=== PATIENT | male | born 1960 | race Caucasian/White ===

== ENCOUNTER 2017-07-01 10:02 | Emergency (ER) | payer BC ==
[~2017-07-01] VITALS: Ht 172.7 cm; Wt 66.5 kg
[2017-07-01 10:04] VITALS: Ht 172.7 cm; Wt 66.5 kg
[2017-07-01] MEDS ORDERED: IBUPROFEN 600 MG TAB PO ONE (11:00)
[2017-07-01] MEDS ORDERED: DEXAMETHASONE 10 MG/ML 1 ML INJ IM ONE (11:00)
--- NOTE | 2017-07-01 11:07 | ERD ---
ER Documentation Chief Complaint Date/Time DATE: 07/01/17 TIME: 10:53 Chief Complaint lower back pain x 2 weeks HPI 57-year-old otherwise healthy male presents the emergency department for complaints of gradually worsening low back pain 2 weeks. Patient states while at work is required to lift heavy material but does not note any discrete incident where he sustained an injury. He reports currently a 10 out of 10 constant sharp nonradiating lower right back pain, which is worse when going from sitting to standing and improved with walking. Patient states he is attempted to treat his pain with icy hot at home with no relief. Patient denies any radiation of pain, numbness, tingling or weakness. He denies any bowel or bladder incontinence. He denies any saddle anesthesia. He denies any fevers, chills, chest pain, shortness of breath, abdominal pain, dizziness, dysuria, hematuriA. ROS All systems reviewed and are negative except as per history of present illness. Allergies Allergies: Coded Allergies: No Known Allergy (Unverified , 07/01/17) Physical Exam Vitals Vital Signs Date Time Temp Pulse Resp B/P Pulse Ox O2 Delivery O2 Flow Rate FiO2 07/01/17 10:04 98.4 85 20 161/74 100 Physical Exam Const: Well-developed, well-nourished, no acute distress Head: Atraumatic Neck: Full range of motion..~ No meningismus. Resp: Clear to auscultation bilaterally Cardio: Regular rate and rhythm, no murmurs Abd: Soft, non tender, non distended. Normal bowel sounds. No pulsatile masses. Skin: No petechiae or rashes Back: No surface trauma, swelling, erythema, or ecchymosis. Patient with full range of motion at hip, knees, ankles. Patient with good strength against resistance at hip and knees. Patient able to bear full weight and ambulate without difficulty. No midline spinal tenderness, no flank tenderness to palpation. Mild tenderness along the right paraspinous region. Patellar deep tendon reflexes brisk and equal bilaterally. Distal sensation intact to light touch bilaterally. Pedal pulses equal bilateral. No swelling of the lower legs. Ext: No cyanosis, or edema Neur: Awake and alert Psych: Normal Mood and Affect Procedures/MDM This is an otherwise healthy 57-year-old male who presents emergency department for complaints of gradually worsening lower back pain 2 week. Patient does not note any or injury but states that he is required to lift heavy objects at work. Vital signs reviewed. Patient afebrile, non-tachycardic, not hypoxic upon arrival. Patient's blood pressure was elevated (>120/80) but appears stable without evidence of hypertension emergency or urgency. The patient was counseled about the risks of hypertension and urged to pursue outpatient monitoring and therapy within a week with their primary care physician. Physical exam without evidence of swelling, bruising, midline tenderness, decreased range of motion, weakness, or neurovascular deficit. Patient without complaints of saddle anesthesia or bowel and bladder incontinence. Patient well -appearing upon arrival, able to bear full weight and ambulate. The patient's low back pain is unlikely related to serious etiology. The patient exhibits no clinical signs or symptoms and has no history or risk factors to suggest cauda equina, cord compression, epidural abscess, epidural hematoma, acute aortic aneurysm or dissection. History and physical consistent with likely low back strain. Patient received pain medication while in the emergency department and instructed to begin stretching exercises. Recommended to follow-up with primary care physician for referral to physical therapy or flight control specialist for MRI if symptoms persist. Resources provided. Based on patient's history of present illness and physical examination the decision was made to discharge. The patient was re-evaluated after ED treatment and stabilizing measures, and symptoms have improved. There is no evidence of life threatening injuries or illnesses at this time. On re-examination, patient resting in no distress, stable vital signs, reports feeling better and safe for discharge with outpatient follow up with PMD in 1-2 days. Patient given return precautions. Departure Diagnosis: Primary Impression: Back pain Back pain location: low back pain Chronicity: acute Back pain laterality: right Sciatica presence: without sciatica Qualified Code: M54.5 - Acute right-sided low back pain without sciatica BA IVERSON PA-C Jul 01, 2017 11:03
[2017-07-01] MEDS ORDERED: NAPR-260 PO (11:11)
[2017-07-01] MEDS ORDERED: HYDR-906 PO (11:11)
== END 2017-07-01 11:15 | disposition home or self-care (01) ==
LOC: FTE 10:02
DX: M54.5 Low back pain (principal)
CPT/HCPCS: 96372; 99284; J1100

== ENCOUNTER 2017-09-06 06:49 | Inpatient (IN) | payer BC ==
[~2017-09-06] VITALS: Ht 154.9 cm; Wt 58.0 kg
[~2017-09-06 06:49] MED LIST: HYDR-906 PO; NAPR-260 PO
[2017-09-06 06:52] VITALS: Ht 154.9 cm; Wt 58.0 kg
[2017-09-06] MEDS ORDERED: ONDANSETRON 4 MG INJ IV STA (07:02)
[2017-09-06] MEDS ORDERED: SOD CHLORIDE 0.9% 1,000 ML IV STA (07:02)
--- NOTE | 2017-09-06 07:10 | ERD ---
ER Documentation Chief Complaint Chief Complaint ap since yesterday HPI This is a 57-year-old male with a past medical history of colon resection secondary to a tumor in the past who is presenting with 1 day of epigastric pain with nausea and an episode of nonbilious nonbloody vomiting. The patient notes that the vomit was clear and yellow in color. He only had one episode of this. The patient reports eating chicken soup yesterday. He did not eat anything out of the ordinary. The patient does not endorse a history of reflux. The patient denies feeling sick recently. The patient denies fever or chills. The patient has had no headache or vision changes. The patient denies lightheadedness or dizziness. The patient has had no chest pain or shortness of breath trouble breathing. The patient denies abdominal pain or changes to bowel movements or urination. The patient has had no focal deficits. The patient has had no weakness or numbness or tingling to the face or extremities. ROS All systems reviewed and are negative except as per history of present illness. Medications Home Meds Active Scripts Hydrocodone/Acetaminophen ([place] 5-325 Tablet) 1 Each Tablet, 1 TAB PO Q6H Y for PAIN, #15 TAB Prov:BA IVERSON PA-C 07/01/17 Naproxen* (Naprosyn*) 500 Mg Tablet, 500 MG PO BID Y for PAIN AND/OR INFLAMMATION, #30 TAB Prov:BA IVERSON PA-C 07/01/17 Allergies Allergies: Coded Allergies: No Known Allergy (Unverified , 07/01/17) PMhx/Soc History of Surgery: Yes (Colon Surgery) Hx Miscellaneous Medical Probl: Yes (Colon Tumor) Hx Alcohol Use: No Hx Substance Use: No FmHx Family History: No coronary disease Physical Exam Vitals Vital Signs Date Time Temp Pulse Resp B/P Pulse Ox O2 Delivery O2 Flow Rate FiO2 09/06/17 08:41 72 131/76 09/06/17 08:41 92 131/72 09/06/17 06:52 98.1 85 18 142/87 99 Physical Exam Const: No apparent distress, well-developed, well-nourished Head: Atraumatic Eyes: Normal Conjunctiva. Extraocular movements intact. ENT: Normal External Ears, Nose and Mouth. Neck: Full range of motion. ~ No meningismus. Resp: Clear to auscultation bilaterally Cardio: Regular rate and rhythm, no murmurs Abd: Soft, non distended. +Epigastric tenderness. Normal bowel sounds Skin: No petechiae or rashes Back: No midline or flank tenderness Ext: No cyanosis, or edema Neur: Awake and alert, oriented 4. Cranial nerves intact. No facial droop. Normal strength and sensation in all extremities. Coordination with finger to nose normal. Psych: Normal Mood and Affect Result Diagram: 09/06/17 0707 09/06/17 0707 Results 24 hrs Laboratory Tests Test 09/06/17 07:07 09/06/17 08:26 White Blood Count 9.110^3/ul Red Blood Count 4.3610^6/ul Hemoglobin 7.1g/dl Hematocrit 26.5% Mean Corpuscular Volume 60.8fl Mean Corpuscular Hemoglobin 16.3pg Mean Corpuscular Hemoglobin Concent 26.8g/dl Red Cell Distribution Width 19.7% Platelet Count 06026^3/UL Mean Platelet Volume 9.3fl Neutrophils % 58.5% Lymphocytes % 25.6% Monocytes % 11.1% Eosinophils % 3.5% Basophils % 1.0% Nucleated Red Blood Cells % 0.0/100WBC Neutrophils # 5.310^3/ul Lymphocytes # 2.310^3/ul Monocytes # 1.010^3/ul Eosinophils # 0.310^3/ul Basophils # 0.110^3/ul Nucleated Red Blood Cells # 0.010^3/ul Urine Color YELLOW Urine Clarity CLEAR Urine pH 6.0 Urine Specific [place] 1.016 Urine Ketones NEGATIVEmg/dL Urine Nitrite NEGATIVEmg/dL Urine Bilirubin NEGATIVEmg/dL Urine Urobilinogen NEGATIVEmg/dL Urine Leukocyte Esterase NEGATIVELeu/ul Urine Hemoglobin NEGATIVEmg/dL Urine Glucose NEGATIVEmg/dL Urine Total Protein NEGATIVEmg/dl Sodium Level 138mmol/L Potassium Level 4.1mmol/L Chloride Level 103mmol/L Carbon Dioxide Level 27mmol/L Anion Gap 12 Blood Urea Nitrogen 9mg/dl Creatinine 0.69mg/dl Glucose Level 96mg/dl Lactic Acid Level 0.7mmol/L Calcium Level 7.9mg/dl Total Bilirubin 0.1mg/dl Direct Bilirubin 0.00mg/dl Indirect Bilirubin 0.1mg/dl Aspartate Amino Transf (AST/SGOT) 17IU/L Alanine Aminotransferase (ALT/SGPT) 28IU/L Alkaline Phosphatase 84IU/L Troponin I < 0.012ng/ml Total Protein 7.1g/dl Albumin 3.4g/dl Globulin 3.70g/dl Albumin/Globulin Ratio 0.91 Lipase 119U/L Stool Occult Blood NEGATIVE Current Medications Medications (Trade) Dose Ordered Sig/Nikolay Route PRN Reason Start Time Stop Time Status Last Admin Dose Admin Sodium Chloride (NS) 1,000 ml @ 1,000 mls/hr Q1H STAT IV 09/06/17 07:02 09/06/17 08:01 DC 09/06/17 07:29 Ondansetron HCl (Zofran Inj) 4 mg ONCE STAT IV 09/06/17 07:02 09/06/17 07:05 DC 09/06/17 07:37 Famotidine (Pepcid Iv) 20 mg ONCE ONCE IV 09/06/17 07:30 09/06/17 07:31 DC 09/06/17 07:36 Miscellaneous Medication (Gi Cocktail (2)) 40 ml ONCE ONCE PO 09/06/17 07:30 09/06/17 07:31 DC 09/06/17 07:33 Procedures/MDM MDM Patient's presentation warrants further investigation. The patient's only complaint is epigastric pain. An abdominal workup will be performed. Given the patient's age, a cardiac workup will also be performed to evaluate for atypical chest pain. However, my suspicion for a cardiac etiology is low. LABS The patient's blood work was obtained and reviewed. The patient seemed shows no leukocytosis or left shift. The patient is afebrile, and I do not suspect a systemic infection. The patient is microcytic anemic today with a hemogolobin of 7.1, MCV of 60.8 and a Hct of 26.5. The patient's platelet count is unremarkable. The patient's CMP shows no signs of metabolic or electrolyte abnormality. The patient has normal renal and hepatic function testing. Troponin is negative. Lactic acid is negative. Urinalysis shows no signs of hematuria or infection. EKG EKG read by me: Rate/Rhythm: Regular rate and rhythm at a rate of 75bpm Intervals: Normal [place]: Normal Impression: No evidence of ischemia or arrhythmia IMAGING CXR FINDINGS: The lungs are clear. The heart size is normal. There is no pleural effusion. There is no pneumothorax. IMPRESSION: Normal chest radiograph. Electronically viewed and signed by .Fredy Bocanegra MD, MD on 09/06/2017 07:18 TREATMENT/DISPOSITION The patient was given IV fluids in the emergency department in addition to Pepcid and a GI cocktail. His epigastric symptoms completely resolved. A rectal exam was performed and he was Hemoccult negative. During orthostatic evaluation, his heart rate jumped 20 bpm and he became very lightheaded. While we did not find a source of bleeding, there is a possibility of iron deficient anemia. Given the patient's symptomatic anemia, I feel that he requires admission to the hospital for further evaluation and management. The patient will be admitted to the panel service. Patient does have a PPO, but he does not have a primary physician. A physician that is part of his PPO was called to discuss the case and he felt that it was appropriate to admit to the panel at this time. The patient was accepted by Dr. Amin at 10:40 AM on September 06, 2017. Departure Diagnosis: Primary Impression: Symptomatic anemia Additional Impressions: Epigastric pain Microcytic anemia Condition: Stable AISSATOU LLAMAS MD Sep 06, 2017 07:10
--- NOTE | 2017-09-06 07:18 | RADRPT ---
PROCEDURE: XR Chest. CLINICAL INDICATION: Abdominal pain. TECHNIQUE: Single frontal view. COMPARISON: None. FINDINGS: The lungs are clear. The heart size is normal. There is no pleural effusion. There is no pneumothorax. IMPRESSION: 1. Normal chest radiograph. RPTAT: QQ .Fredy Bocanegra MD, Date Time Electronically viewed and signed by .Fredy Bocanegra MD, on 09/06/2017 07:18 .R/
[2017-09-06] MEDS ORDERED: LIDOCAINE/MYLANTA 40 ML BTL PO ONE (07:30)
[2017-09-06] MEDS ORDERED: FAMOTIDINE 20 MG INJ IV ONE (07:30)
[2017-09-06 07:32] LABS: ABNORMAL IP MESSAGE 1; BASOPHIL # 0.1 10^3/ul (0.0-0.1); EOSINOPHILS # 0.3 10^3/ul (0.0-0.5); EOSINOPHILS % 3.5 % (0.0-7.0); HEMATOCRIT 26.5 % (42.0-52.0); HEMOGLOBIN 7.1 g/dl (14.0-18.0); LYMPHOCYTES # 2.3 10^3/ul (0.8-2.9); LYMPHOCYTES % 25.6 % (15.0-51.0); MEAN CORPUSCULAR HEMOGLOBIN 16.3 pg (29.0-33.0); MEAN CORPUSCULAR HGB CONC 26.8 g/dl (32.0-37.0); MEAN CORPUSCULAR VOLUME 60.8 fl (82.0-101.0); MEAN PLATELET VOLUME 9.3 fl (7.4-10.4); MONOCYTES % 11.1 % (0.0-11.0); NEUTROPHIL # 5.3 10^3/ul (1.6-7.5); NEUTROPHILS % 58.5 % (39.0-77.0); PLATELET COUNT 506 10^3/UL (140-415); POSITIVE DIFF @See below; RED BLOOD COUNT 4.36 10^6/ul (4.70-6.10); RED CELL DISTRIBUTION WIDTH 19.7 % (11.5-14.5); WHITE BLOOD COUNT 9.1 10^3/ul (4.8-10.8)
[2017-09-06 07:36] LABS: ADD UMIC NO; UR ASCORBIC ACID 20 mg/dL (NEGATIVE); UR BILIRUBIN (Dip) NEGATIVE (NEGATIVE); UR BLOOD (Dip) NEGATIVE (NEGATIVE); UR CLARITY CLEAR (CLEAR); UR COLOR YELLOW (YELLOW); UR GLUCOSE (Dip) NEGATIVE (NEGATIVE); UR KETONES (Dip) NEGATIVE (NEGATIVE); UR LEUKOCYTE ESTERASE (Dip) NEGATIVE Leu/ul (NEGATIVE); UR NITRITE (Dip) NEGATIVE (NEGATIVE); UR SPECIFIC GRAVITY (Dip) 1.016 (1.003-1.030); UR TOTAL PROTEIN (Dip) NEGATIVE (NEGATIVE); UR UROBILINOGEN (Dip) NEGATIVE (NEGATIVE)
[2017-09-06 07:49] LABS: ALANINE AMINOTRANSFERASE 28 IU/L (13-69); ALBUMIN 3.4 g/dl (3.3-4.9); ALBUMIN/GLOBULIN RATIO 0.91; ALKALINE PHOSPHATASE 84 IU/L (42-121); ANION GAP 12 (8-16); ASPARTATE AMINO TRANSFERASE 17 IU/L (15-46); BILIRUBIN,INDIRECT 0.1 mg/dl (0-1.1); BILIRUBIN,TOTAL 0.1 mg/dl (0.2-1.3); BLOOD UREA NITROGEN 9 mg/dl (7-20); CALCIUM 7.9 mg/dl (8.4-10.2); CARBON DIOXIDE 27 mmol/L (21-31); CHLORIDE 103 mmol/L (97-110); CREATININE 0.69 mg/dl (0.61-1.24); GLUCOSE 96 mg/dl (70-220); POTASSIUM 4.1 mmol/L (3.5-5.1); SODIUM 138 mmol/L (135-144); TOTAL PROTEIN 7.1 g/dl (6.1-8.1)
[2017-09-06 08:09] LABS: TROPONIN-I < 0.012 ng/ml (0.00-0.12)
[2017-09-06] MEDS ORDERED: ONDANSETRON 4 MG INJ IV PRN (11:00)
[2017-09-06] MEDS ORDERED: ACETAMINOPHEN 325 MG TAB PO PRN (11:00)
[2017-09-06 12:23] LABS: IRON < 10 ug/dl (35-150); TOTAL IRON BINDING CAPACITY 380 ug/dl (241-421)
--- NOTE | 2017-09-06 13:36 | HP ---
Date/Time of Note Date/Time of Note DATE: 09/06/17 TIME: 13:22 Assessment/Plan VTE Prophylaxis VTE Prophylaxis Intervention: SCD's, other Assessment/Plan Chief Complaint/Hosp Course 57 yo male with remote history of colon "tumor" resection (unclear details but told not cancer) who now presents with iron deficiency anemia of chronic blood loss - Likely PUD vs upper GI malignancy. Needs EGD - IV iron for iron deficiency - Will hold off on transfusion for now but can be considered - PPI - Clear liquids, NPO at midnight in anticipation of EGD tomorrow Problems: HPI/ROS Admit Date/Time Admit Date/Time Hx of Present Illness 57 yo male wiht remote histoyr of resected "colon tumor" who presents with epigastric discomfort and dyspena on exertion. Patient describes two weeks of symptoms. Has had epigastric burning sensation, seems worse with food/liquids. Has also noticed getting more winded w exertion. Also some dizziness with standing. Found to have profound microcytic anemia and iron deficiency. He denies any melena or hematochezia. Normal bowel habits. No dysphagia or early satiety. No weight loss. Curerntly comfortable. PMH/Family/Social Past Medical History Histoyr of colon "tumor" with srugical resectino in 1995 Past Surgical History Past Surgical Hx: other Family History Significant Family History: no pertinent family hx Social History Alcohol Use: none Smoking Status: Never smoker Drug Use: none Exam/Review of Systems Vital Signs Vitals Vital Signs Date Time Temp Pulse Resp B/P Pulse Ox O2 Delivery O2 Flow Rate FiO2 09/06/17 11:30 71 18 130/76 99 Room Air 09/06/17 06:52 98.1 Exam Constitutional: alert, oriented, well developed Psych: nl mood/affect, no complaints Head: atraumatic, normocephalic Eyes: EOMI, PERRL, nl conjunctiva, nl lids, nl sclera ENMT: nl external ears & nose, nl lips & teeth, nl nasal mucosa & septum Neck: non-tender, supple Respiratory: clear to auscultation, normal air movement Cardiovascular: nl pulses, regular rate and rhythm Gastrointestinal: nl liver, spleen, non-tender, soft Musculoskeletal: nl extremities to inspection Extremities: normal pulses Neurological: 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
[2017-09-06] MEDS ORDERED: NACL 0.9% 3 ML SYG IV SCH (14:00)
[2017-09-06] MEDS: SOD FERRIC GLUC COMPLX 125 MG in SOD CHLORIDE 0.9% 100 ML IVPB SCH (14:30)
[2017-09-06] MEDS: PANTOPRAZOLE 40 MG INJ IV SCH (17:15)
[2017-09-06 17:36] VITALS: TEMP 98.3
[2017-09-06 18:09] VITALS: BP 156/74; RESP 18
[2017-09-06] MEDS ORDERED: BISACODYL (EC) 5 MG TAB PO ONE (18:30)
[2017-09-06] MEDS ORDERED: MAGNESIUM CITRATE 300 ML BTL PO ONE (19:30)
[2017-09-06 19:41] VITALS: BP 140/87; RESP 18
[2017-09-06] MEDS: POTASSIUM CHLORIDE 10 MEQ in DEXTROSE 5%-0.9% NACL 1,000 ML IV SCH (20:12)
[2017-09-07] VITALS (12 sets, daily range): BP systolic 116–156; BP diastolic 66–82; PULSE 64–78; RESP 15–27
[2017-09-07] MEDS ORDERED: POLYETHYLENE GLYCOL 3350 119 GM POWDER PO ONE (06:00)
[2017-09-07 06:04] LABS: ABNORMAL IP MESSAGE 1; HEMATOCRIT 24.2 % (42.0-52.0); MEAN CORPUSCULAR HGB CONC 26.4 g/dl (32.0-37.0); MEAN CORPUSCULAR VOLUME 60.5 fl (82.0-101.0); MEAN PLATELET VOLUME 9.6 fl (7.4-10.4); PLATELET COUNT 440 10^3/UL (140-415); POSITIVE DIFF @See below; RED CELL DISTRIBUTION WIDTH 20.1 % (11.5-14.5); WHITE BLOOD COUNT 6.9 10^3/ul (4.8-10.8)
[2017-09-07] MEDS: PANTOPRAZOLE 40 MG INJ IV SCH ×2 (06:24→20:00)
[2017-09-07] MEDS: POTASSIUM CHLORIDE 10 MEQ in DEXTROSE 5%-0.9% NACL 1,000 ML IV SCH ×2 (06:25→15:36)
[2017-09-07 06:29] LABS: INR 1.07; PROTIME 13.9 Sec (12.2-14.2); PT RATIO 1.1
[2017-09-07 06:30] LABS: PARTIAL THROMBOPLASTIN TIME 36.5 Sec (25.0-35.0)
[2017-09-07 06:48] LABS: ALBUMIN 2.8 g/dl (3.3-4.9); ALBUMIN/GLOBULIN RATIO 0.75; BILIRUBIN,INDIRECT 0.1 mg/dl (0-1.1); BILIRUBIN,TOTAL 0.1 mg/dl (0.2-1.3); CALCIUM 7.7 mg/dl (8.4-10.2); CREATININE 0.69 mg/dl (0.61-1.24); POTASSIUM 3.4 mmol/L (3.5-5.1); TOTAL PROTEIN 6.5 g/dl (6.1-8.1)
[2017-09-07 07:07] LABS: THYROID STIMULATING HORMONE 1.82 MIU/L (0.465-4.680)
[2017-09-07 07:17] LABS: HEMOGLOBIN 6.4 g/dl (14.0-18.0)
[2017-09-07] MEDS ORDERED: POTASSIUM CHLORIDE (SR) 20 MEQ TAB PO STA (09:34)
[2017-09-07 10:33] LABS: ANISOCYTOSIS 3+ (0-0); BASOPHILS % (M) 2 % (0-2); EOSINOPHILS % (M) 4 % (0-7); GIANT THROMBO% (M) 2 % (0-0); HYPOCHROMASIA 3+ (0-0); MICROCYTOSIS 3+ (0-0); MONOCYTES % (M) 11 % (0-11); PLATELET ESTIMATE NORMAL; POIKILOCYTOSIS 1+ (0-0); POLYCHROMASIA 3+ (0-0); REACTIVE LYMPHOCYTES% (M) 6 % (0-0)
[2017-09-07] MEDS ORDERED: POTASSIUM CHLORIDE 250 ML IVPB ONE (11:00)
--- NOTE | 2017-09-07 17:29 | PN ---
Date/Time of Note Date/Time of Note DATE: 09/07/17 TIME: 17:24 Assessment/Plan VTE Prophylaxis VTE Prophylaxis Intervention: SCD's Lines/Catheters IV Catheter Type (from Nrsg): Peripheral IV Assessment/Plan Chief Complaint/Hosp Course 1. Severe microcytic anemia Plan for EGD today, of note stool occult is negative Continue Ferrlecit, continue Protonix 2. Abdominal pain likely secondary to peptic ulcer disease Follow-up on EGD results Morphine as needed Continue Protonix 3. Hypokalemia Replete Prophylaxis: SCDs Problems: Subjective 24 Hr Interval Summary Gastrointestinal: pain Exam/Review of Systems Vital Signs Vitals Vital Signs Date Time Temp Pulse Resp B/P Pulse Ox O2 Delivery O2 Flow Rate FiO2 09/07/17 14:20 98.7 73 20 123/72 99 09/07/17 07:52 Room Air Intake and Output 09/06/17 09/06/17 09/07/17 15:00 23:00 07:00 Intake Total 1050 ml Balance 1050 ml Exam Constitutional: alert, oriented Respiratory: clear to auscultation Cardiovascular: regular rate and rhythm Gastrointestinal: soft, No distended Musculoskeletal: nl extremities to inspection Results Result Diagram: 09/07/17 0510 09/07/17 0510 Results 24 hrs Laboratory Tests Test 09/07/17 05:10 White Blood Count 6.9 # Red Blood Count 4.00 L Hemoglobin 6.4 *L Hematocrit 24.2 L Mean Corpuscular Volume 60.5 L Mean Corpuscular Hemoglobin 16.0 L Mean Corpuscular Hemoglobin Concent 26.4 L Red Cell Distribution Width 20.1 H Platelet Count 440 H Mean Platelet Volume 9.6 Neutrophils % Segmented Neutrophils % (Manual) 51 Band Neutrophils % (Manual) 1 Lymphocytes % Lymphocytes % (Manual) 25 Reactive Lymphocytes % (Manual) 6 H Monocytes % Monocytes % (Manual) 11 Eosinophils % Eosinophils % (Manual) 4 Basophils % Basophils % (Manual) 2 Nucleated Red Blood Cells % 0.0 Neutrophils # Neutrophils # (Manual) 3.5 Band Neutrophils # 0.0 Absolute Lymphocytes (Manual) 1.7 Lymphocytes # Reactive Lymphocytes # 0.4 H Monocytes # Absolute Monocytes (Manual) 0.7 Eosinophils # Basophils # Basophils # (Manual) 0.1 H Nucleated Red Blood Cells # Platelet Estimate NORMAL Giant Platelets 2 H Polychromasia 3+ Hypochromasia 3+ Poikilocytosis 1+ Anisocytosis 3+ Microcytosis 3+ Prothrombin Time 13.9 Prothrombin Time Ratio 1.1 INR International Normalized Ratio 1.07 Activated Partial Thromboplast Time 36.5 H Sodium Level 142 Potassium Level 3.4 L Chloride Level 109 Carbon Dioxide Level 29 Anion Gap 7 L Blood Urea Nitrogen 5 L Creatinine 0.69 Glucose Level 99 Calcium Level 7.7 L Total Bilirubin 0.1 L Direct Bilirubin 0.00 Indirect Bilirubin 0.1 Aspartate Amino Transf (AST/SGOT) 15 Alanine Aminotransferase (ALT/SGPT) 27 Alkaline Phosphatase 80 Total Protein 6.5 Albumin 2.8 L Globulin 3.70 H Albumin/Globulin Ratio 0.75 Thyroid Stimulating Hormone (TSH) 1.820 Medications Medications Current Medications Ferric Sodium Gluconate Complex/ Sodium Chloride (Ferrlecit/NS) 110 ml @ 110 mls/hr Q24H IVPB Last administered on 09/06/17 14:30; Admin Dose 110 MLS/HR; Start 09/06/17 at 14:30; Stop 09/10/17 at 15:29 Pantoprazole 40 mg 40 mg BID@06,18 IV Last administered on 09/07/17 06:24; Admin Dose 40 MG; Start 09/06/17 at 18:00 Potassium Chloride/Dextrose/ Sodium Chloride (KCl/D5-NS) 1,005 ml @ 100 mls/hr Q10H3M IV Last administered on 09/07/17 06:25; Admin Dose 100 MLS/HR; Start 09/06/17 at 19:30 Influenza Virus Vaccine (Fluzone) 0.5 ml ONCE ONCE IM* ; Start 09/08/17 at 13: 30; Stop 09/08/17 at 13:31 LINDSEY AVALOS Sep 07, 2017 17:29
--- NOTE | 2017-09-07 17:35 | HPN ---
Date/Time of Note Date/Time of Note DATE: 09/07/17 TIME: 17:34 Interval H&P Admission Note Pt. seen H&P reviewed: No system changes JAG MALIK MD Sep 07, 2017 17:35
[2017-09-07] MEDS ORDERED: PROPOFOL 60 ML ONE (17:49)
--- NOTE | 2017-09-07 18:13 | OPPN ---
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 Biopsies obtained Second large clearly malignant mass mid body of the stomach greater curvature measures at least 5 cm. Biopsies obtained Otherwise normal EGD Plan: Review pathology Continue PPI therapy CT abdomen, pelvis and chest Oncology consult Surgical consult . Procedure Performed: Endoscopy (With biopsies) Surgeon JAG MALIK MD See signature line Outsole Cementer Machine none Anesthesia Type: MAC Anesthesiologist: BETHEL CARMICHAEL MD Tourniquet Time none EBL none Transfusion required none Biopsy 1: Mid body gastric mass Biopsy 2: Proximal gastric mass Grafts/Implants none Tubes/Drains none Complication(s) none Disposition: PACU Procedure Description Preoperative Diagnosis: After informed consent, with the patient/relatives understanding the procedure, its indications, potential risks and complications, including but not limited to : allergic reaction, bleeding, perforation or infection, and after all pertinent questions were answered to the patients satisfaction, the patient/ relatives signed witnessed informed consent. Following this, premedication was administered slowly IV push under careful cardiovascular and respiratory monitoring with pulse oximetry, automatic blood pressure, and playground monitor. Once the sedative effect was achieved the patient was place in the left lateral decubitus, the panendoscope was introduced and advanced under visual control. Careful examination of the upper gastrointestinal tract, both on insertion as well as withdrawal of the instrument disclosing the following findings: ESOPHAGUS: the mucosa of the entire esophagus was carefully examined and showed the following findings: the mucosa appears within normal limits. There is no evidence of esophagitis, varices, neoplasm, or stricture. No Hiatal Hernia identified. STOMACH: Upon entrance to the stomach air was insufflated, the gastric gar distended normally. The mucosa of the fundus, body and antrum of the stomach was carefully examined both head-on and on retroflexion, and showed the following findings: There is a large at least 5 cm mass in the proximal stomach lesser curvature clearly malignant in nature multiple biopsies were obtained. A second apparently independent mass was noted in the mid body of the stomach greater curvature again measuring approximately 5 cm clearly malignant in nature. Biopsies were obtained as well in a separate container. Otherwise the mucosa appears within normal limits with no abnormalities. PYLORUS: The pylorus was carefully examined and showed the following findings: the pylorus appears patent and within normal limits, with no evidence of gastric outlet obstruction. DUODENUM: The duodenal mucosa was carefully examined in the duodenal bulb as well as the second portion of the duodenum and showed the following findings: the mucosa appears unremarkable with no evidence of duodenitis, ulcer or neoplasm. Copies To: CC: JAG MALIK MD, MORDO MD Sep 07, 2017 18:13
--- NOTE | 2017-09-07 18:19 | OPPN ---
Date/Time of Note Date/Time of Note DATE: 09/07/17 TIME: 18:13 Proc Note GI Procedure Date 09/07/17 Indication: other (Anemia/history of colon neoplasm) Pre-procedure Diagnosis Anemia History of colon neoplasm post surgery Post-procedure Diagnosis Impression: Large approximately 3 cm pedunculated polyp in the ascending colon. Post right segmental colectomy with end-to-side ileocolonic anastomosis Moderate-sized internal hemorrhoids Otherwise normal colonoscopy Plan: Review pathology as soon as available Close observation for evidence of bleeding Advance diet as tolerated Surveillance colonoscopy in 1 year . Procedure Performed: Colonoscopy (With polypectomy plus Endo Clip placement) Surgeon JAG MALIK MD See signature line Manager Skilled none Anesthesia Type: MAC Anesthesiologist: BETHEL CARMICHAEL MD Tourniquet Time none EBL none Transfusion required none Biopsy 1: Ascending colon polyp Grafts/Implants none Tubes/Drains none Complication(s) none Disposition: PACU Procedure Description After informed consent, with the patient/relatives understanding the procedure, its indications and potential risks and complications, including but not limited to: Allergic reaction, bleeding, perforation, infection, and after all pertinent questions were answered to the patient's satisfaction, the patient/ relatives signed the witnessed informed consent. Following this, premedication was administered slowly IV push under careful cardiovascular and respiratory monitoring with pulse OXIMETRY, automatic blood pressure, and button pusher. Once the sedative effect was achieved, the patient was placed in the left lateral decubitus position, digital rectal examination was performed. The colonoscope was then introduced and advanced under visual control throughout all segments of the colon including: the rectum, sigmoid, descending colon, splenic flexure, transverse colon, hepatic flexure, ascending colon and reaching an end-to-side ileocolonic anastomosis. T Careful examination of the mucosa of the lower gastrointestinal tract both on insertion as well as withdrawal of the instrument disclosed the following findings: PREPARATION QUALITY: [Adequate], RECTAL EXAM: The anorectal area was visualized examined and digital rectal examination performed with the following findings: No evidence of perirectal disease, no masses. COLONIC MUCOSA: The mucosa of all segments of the colon was carefully examined and showed the following findings: There is a very large 3 cm pedunculated polyp in the ascending colon. Nearby an end-to-side ileocolonic anastomosis identified. The anastomosis appears clean with healthy-appearing mucosa. Instrument was then withdrawn the polyp was again identified large polypectomy snare was placed around the polyp and the polyp was resected with ERBE. 2 endoclips were placed in the stalk of the polyp to prevent delayed bleeding. Moderate-sized internal hemorrhoids are present. Otherwise the examined mucosa appears within normal limits. There is no evidence of inflammatory changes, diverticular formation or other neoplasms, vascular malformation, or any other abnormality. The instrument was then withdrawn, the patient tolerated the procedure well and was transferred out of the Endoscopy Suite awake and in good condition to continue recovery under observation. Copies To: CC: JAG MALIK MD, MORDO MD Sep 07, 2017 18:18
[2017-09-07] MEDS ORDERED: ONDANSETRON 4 MG INJ IV PRN (19:00)
[2017-09-07] MEDS ORDERED: MEPERIDINE 25 MG INJ IV PRN (19:00)
[2017-09-07] MEDS ORDERED: MORPHINE 2 MG IV PRN (19:00)
[2017-09-07] MEDS ORDERED: LABETALOL 5 MG IV PRN (19:00)
[2017-09-07] MEDS ORDERED: BARIUM SULF 2% 450 ML BTL (BERRY SMOOTHIE) PO ONE (19:30)
[2017-09-07] MEDS ORDERED: SOD CHLORIDE 0.9% 100 ML ONE (20:17)
[2017-09-07] MEDS ORDERED: IOHEXOL 300MG/ML 150 ML BTL ONE (20:17)
[2017-09-07 20:20] LABS: HEMATOCRIT 32.7 % (42.0-52.0); HEMOGLOBIN 9.5 g/dl (14.0-18.0)
[2017-09-07] MEDS: SOD FERRIC GLUC COMPLX 125 MG in SOD CHLORIDE 0.9% 100 ML IVPB SCH (22:54)
[2017-09-08] MEDS: POTASSIUM CHLORIDE 10 MEQ in DEXTROSE 5%-0.9% NACL 1,000 ML IV SCH ×3 (01:23→21:45)
[2017-09-08 02:00] VITALS: BP 133/78; RESP 18
[2017-09-08 06:18] LABS: ABNORMAL IP MESSAGE 1; BASOPHIL # 0.1 10^3/ul (0.0-0.1); BASOPHILS % 0.7 % (0.0-2.0); EOSINOPHILS # 0.4 10^3/ul (0.0-0.5); EOSINOPHILS % 3.3 % (0.0-7.0); HEMATOCRIT 34.5 % (42.0-52.0); HEMOGLOBIN 10.1 g/dl (14.0-18.0); LYMPHOCYTES # 1.8 10^3/ul (0.8-2.9); LYMPHOCYTES % 15.4 % (15.0-51.0); MEAN CORPUSCULAR HEMOGLOBIN 19.3 pg (29.0-33.0); MEAN CORPUSCULAR HGB CONC 29.3 g/dl (32.0-37.0); MEAN PLATELET VOLUME 9.6 fl (7.4-10.4); MONOCYTE # 1.1 10^3/ul (0.3-0.9); MONOCYTES % 9.2 % (0.0-11.0); NEUTROPHIL # 8.5 10^3/ul (1.6-7.5); NEUTROPHILS % 71.1 % (39.0-77.0); PLATELET COUNT 489 10^3/UL (140-415); POSITIVE DIFF @See below; RED BLOOD COUNT 5.23 10^6/ul (4.70-6.10); RED CELL DISTRIBUTION WIDTH 25.2 % (11.5-14.5); WHITE BLOOD COUNT 11.9 10^3/ul (4.8-10.8)
[2017-09-08] MEDS: PANTOPRAZOLE 40 MG INJ IV SCH (06:32)
[2017-09-08 07:10] LABS: CALCIUM 8.3 mg/dl (8.4-10.2); CREATININE 0.74 mg/dl (0.61-1.24); MAGNESIUM 2.3 mg/dl (1.7-2.5); PHOSPHORUS 3.7 mg/dl (2.5-4.9); POTASSIUM 4.1 mmol/L (3.5-5.1)
[2017-09-08 07:50] VITALS: BP 115/71; RESP 20
--- NOTE | 2017-09-08 09:21 | RADRPT ---
PROCEDURE: CT Chest, Abdomen and Pelvis [<with>] contrast. CLINICAL INDICATION: Colon tumor. Gastric mass. Evaluate for neoplasm. TECHNIQUE: CT scan of the chest, abdomen, and pelvis [<with>] contrast was performed on a multi-de tector high-resolution CT scanner. The patient was scanned [<following the uncomplicated intravenou s administration of 100 cc of Omnipaque 300>] intravenous contrast. Coronal and sagittal reformatte d images were obtained from the axial source images. CTDI equals 9.04 mGy, DLP equals 661.26 mGy-cm. One or more of the following dose reduction techniques were used: - Automated exposure control. - Adjustment of the mA and/or kV according to patient size. - Use of iterative reconstruction technique. COMPARISON: None available FINDINGS: CT CHEST: Lungs: Dense linear atelectasis is seen in the posterior lung bases bilaterally. Small benign calcif ied granuloma is seen in the right middle lobe. Airways: Normal. Pleura: Normal. Mediastinum: Normal. Cardiovascular: Normal. Lymph nodes: No adenopathy. Musculoskeletal: Normal. CT ABDOMEN/PELVIS: Liver: Tiny 1 cm cystic lesion in the superior dome of the liver, too small to characterize. Otherwi se, normal enhancement throughout the liver parenchyma. Patent portal vein. Biliary: Normal gallbladder. No biliary dilatation. Pancreas: Normal. Spleen: Normal. Adrenal Glands: Normal. Genitourinary: Normal. The bladder is partially collapsed and decompressed. Gastrointestinal: Severe abnormal thickening of the mid body of the stomach in a circumferential man ner. Postsurgical changes, status post right hemicolectomy, with uncomplicated appearances of the il eocolonic anastomosis. Mild air-filled gaseous distension of the bowel loops throughout the abdomina l cavity is seen. Lymph nodes: Significant pathologic adenopathy is seen within the perigastric and upper epigastric n odal stations. The largest lymph node in the upper perigastric space measures 13 mm in short axis di mension. Several surgical clips are seen within the splenic flexure of the colon. Vascular: Normal. Peritoneum/mesentery: Large nodule in the mid upper anterior omentum adjacent to the anterior wall o f the stomach measuring 3.1 cm in maximal dimension, consistent with local regional omental metastas is. Additional smaller omental neoplastic implants are seen as well. Reproductive organs: Normal. Musculoskeletal: Multilevel degenerative enthesopathy of the spine. IMPRESSION: 1. Large circumferential infiltrative neoplasm involving the midbody of the stomach consistent with primary gastric cancer. 2. Significant local regional lymphatic spread of neoplasm with abnormal pathologic perigastric and epigastric lymphadenopathy. 3. Large and small nodules within the upper anterior omentum consistent with omental carcinomatosis . 4. Postsurgical changes, status post previous right hemicolectomy, uncomplicated in appearance at t his time. RPTAT: HMJB .Mik Rodas MD, MD Date Time Electronically viewed and signed by .Mik Rodas MD, on 09/08/2017 09:21 .B/
--- NOTE | 2017-09-08 12:53 | PN ---
Date/Time of Note Date/Time of Note DATE: 09/08/17 TIME: 12:44 Assessment/Plan VTE Prophylaxis VTE Prophylaxis Intervention: SCD's Lines/Catheters IV [facility] Saline Lock Assessment/Plan Chief Complaint/Hosp Course Assessment: History of colon neoplasm post surgery Iron deficiency anemia- stable Abdominal pain EGD Large clearly malignant ulcerated mass in the lesser curvature proximal stomach measures at least 5 cm. Biopsies obtained Second large clearly malignant mass mid body of the stomach greater curvature measures at least 5 cm. Biopsies obtained Otherwise normal EGD Colonoscopy: Large approximately 3 cm pedunculated polyp in the ascending colon. Post right segmental colectomy with end-to-side ileocolonic anastomosis Moderate-sized internal hemorrhoids Otherwise normal colonoscopy Plan: Review pathology Continue PPI therapy CT abdomen, pelvis and chest- reviewed and copy below Large circumferential infiltrative neoplasm involving the midbody of the stomach consistent with primary gastric cancer. Significant local regional lymphatic spread of neoplasm with abnormal pathologic perigastric and epigastric lymphadenopathy. Large and small nodules within the upper anterior omentum consistent with omental carcinomatosis. Postsurgical changes, status post previous right hemicolectomy, uncomplicated in appearance at this time. Oncology consult and Surgical consult Continue diet monitor H/H She is seen in collaboration with Dr. Jones Subjective: Course reviewed with nursing staff Patient interviewed and examined All labs, imaging and other results reviewed The patient feels ok, with a fair appetite Patient will need an oncology and surgical consult Min epigastric pain, bud PPI well Problems: Exam/Review of Systems Vital Signs Vitals Vital Signs Date Time Temp Pulse Resp B/P Pulse Ox O2 Delivery O2 Flow Rate FiO2 09/08/17 07:50 98.4 76 20 115/71 97 09/07/17 18:44 Room Air 09/07/17 18:23 2.0 Intake and Output 09/07/17 09/07/17 09/08/17 15:00 23:00 07:00 Intake Total 550 ml 950 ml 1415 ml Output Total 200 ml Balance 550 ml 950 ml 1215 ml Results Result Diagram: 09/08/17 0542 09/08/17 0542 Results 24 hrs Laboratory Tests Test 09/07/17 19:48 09/08/17 05:42 09/08/17 07:04 Hemoglobin 9.5 #L 10.1 L Hematocrit 32.7 #L 34.5 L White Blood Count 11.9 #H Red Blood Count 5.23 # Mean Corpuscular Volume 66.0 L Mean Corpuscular Hemoglobin 19.3 #L Mean Corpuscular Hemoglobin Concent 29.3 L Red Cell Distribution Width 25.2 #H Platelet Count 489 H Mean Platelet Volume 9.6 Neutrophils % 71.1 Lymphocytes % 15.4 Monocytes % 9.2 Eosinophils % 3.3 Basophils % 0.7 Nucleated Red Blood Cells % 0.0 Neutrophils # 8.5 H Lymphocytes # 1.8 Monocytes # 1.1 H Eosinophils # 0.4 Basophils # 0.1 Nucleated Red Blood Cells # 0.0 Sodium Level 141 Potassium Level 4.1 Chloride Level 111 H Carbon Dioxide Level 22 Anion Gap 12 Blood Urea Nitrogen 3 L Creatinine 0.74 Glucose Level 108 Calcium Level 8.3 L Phosphorus Level 3.7 Magnesium Level 2.3 Lab Scanned Report BLOOD TRANSFUSION Medications Medications Current Medications Ferric Sodium Gluconate Complex 125 mg/Sodium Chloride 110 ml @ 110 mls/hr Q24H IVPB Last administered on 09/07/17 22:54; Admin Dose 110 MLS/HR; Start 09/06/17 at 14:30; Stop 09/10/17 at 15:29 Potassium Chloride/Dextrose/ Sodium Chloride (KCl/D5-NS) 1,005 ml @ 100 mls/hr Q10H3M IV Last administered on 09/08/17 01:23; Admin Dose 100 MLS/HR; Start 09/06/17 at 19:30 Influenza Virus Vaccine (Fluzone) 0.5 ml ONCE ONCE IM* ; Start 09/08/17 at 13: 30; Stop 09/08/17 at 13:31 Morphine Sulfate (morphine) 2 mg Q3H PRN IV SEVERE PAIN LEVEL 7-10; Start at 17:30 Pantoprazole (Protonix Tab) 40 mg BID@06,18 PO ; Start 09/08/17 at 18:00 SARA PRINCE Sep 08, 2017 12:53
[2017-09-08] MEDS ORDERED: INFLUENZA VIRUS VACCINE 0.5 ML SYG IM* ONE (13:30)
[2017-09-08 13:41] VITALS: BP 120/64; RESP 20
[2017-09-08] MEDS: SOD FERRIC GLUC COMPLX 125 MG in SOD CHLORIDE 0.9% 100 ML IVPB SCH ×2 (14:11→14:20)
--- NOTE | 2017-09-08 16:08 | PN ---
Date/Time of Note Date/Time of Note DATE: 09/08/17 TIME: 16:04 Assessment/Plan VTE Prophylaxis VTE Prophylaxis Intervention: SCD's Lines/Catheters IV Catheter Type (from [facility]): Saline Lock Assessment/Plan Chief Complaint/Hosp Course 1. Abdominal pain with microcytic anemia EGD showed 2 gastric masses suspicious for malignancy, have consulted oncology and surgery CT abdomen is also showed gastric mass as well as metastasis with omental carcinomatosis Continue Ferrlecit, continue Protonix Pain control 2. History of colon cancer 3. Hypokalemia Repleted Prophylaxis: SCDs Problems: Subjective 24 Hr Interval Summary Gastrointestinal: pain Exam/Review of Systems Vital Signs Vitals Vital Signs Date Time Temp Pulse Resp B/P Pulse Ox O2 Delivery O2 Flow Rate FiO2 09/08/17 13:41 98.0 65 20 120/64 99 09/07/17 18:44 Room Air 09/07/17 18:23 2.0 Intake and Output 09/07/17 09/07/17 09/08/17 15:00 23:00 07:00 Intake Total 550 ml 950 ml 1415 ml Output Total 200 ml Balance 550 ml 950 ml 1215 ml Exam Constitutional: alert, oriented Respiratory: clear to auscultation Cardiovascular: regular rate and rhythm Gastrointestinal: soft, No distended Musculoskeletal: nl extremities to inspection Results Result Diagram: 09/08/17 0542 09/08/17 0542 Results 24 hrs Laboratory Tests Test 09/07/17 19:48 09/08/17 05:42 09/08/17 07:04 Hemoglobin 9.5 #L 10.1 L Hematocrit 32.7 #L 34.5 L White Blood Count 11.9 #H Red Blood Count 5.23 # Mean Corpuscular Volume 66.0 L Mean Corpuscular Hemoglobin 19.3 #L Mean Corpuscular Hemoglobin Concent 29.3 L Red Cell Distribution Width 25.2 #H Platelet Count 489 H Mean Platelet Volume 9.6 Neutrophils % 71.1 Lymphocytes % 15.4 Monocytes % 9.2 Eosinophils % 3.3 Basophils % 0.7 Nucleated Red Blood Cells % 0.0 Neutrophils # 8.5 H Lymphocytes # 1.8 Monocytes # 1.1 H Eosinophils # 0.4 Basophils # 0.1 Nucleated Red Blood Cells # 0.0 Sodium Level 141 Potassium Level 4.1 Chloride Level 111 H Carbon Dioxide Level 22 Anion Gap 12 Blood Urea Nitrogen 3 L Creatinine 0.74 Glucose Level 108 Calcium Level 8.3 L Phosphorus Level 3.7 Magnesium Level 2.3 Lab Scanned Report BLOOD TRANSFUSION Medications Medications Current Medications Ferric Sodium Gluconate Complex 125 mg/Sodium Chloride 110 ml @ 110 mls/hr Q24H IVPB Last administered on 09/08/17 14:11; Admin Dose 110 MLS/HR; Start 09/06/17 at 14:30; Stop 09/10/17 at 15:29 Potassium Chloride/Dextrose/ Sodium Chloride (KCl/D5-NS) 1,005 ml @ 100 mls/hr Q10H3M IV Last administered on 09/08/17 14:11; Admin Dose 100 MLS/HR; Start 09/06/17 at 19:30 Morphine Sulfate (morphine) 2 mg Q3H PRN IV SEVERE PAIN LEVEL 7-10; Start at 17:30 Pantoprazole (Protonix Tab) 40 mg BID@06,18 PO ; Start 09/08/17 at 18:00 LINDSEY AVALOS Sep 08, 2017 16:08
--- NOTE | 2017-09-08 17:11 | CONS ---
Date/Time of Note Date/Time of Note DATE: 09/08/17 TIME: 17:11 Assessment/Plan Assessment/Plan Additional Assessment/Plan [facility] INPATIENT CONSULTATION NOTE DATE OF SERVICE: 09/08/2017 PLACE OF SERVICE: [facility], sixth floor ASSESSMENT AND PLAN: A very-pleasant 57-year-old gentleman who otherwise has been fairly healthy without significant prior comorbid issues, presenting with a picture consistent with gastric malignancy with possible spread. Final pathology is pending. Patient can benefit from multidisciplinary care and may require set up for diagnostic laparoscopy and biopsy with abdominal washings to delineate the extent and stage of this disease per NCCN guidelines. If no evidence of obvious stage IV disease, then aggressive chemotherapy would be indicated. I will reserve full discussion of the above until after the biopsy results are available. Much appreciate the consult. With above assessment, I've recommended the followin. Continue current cares 2. Further management pending biopsy results Thank you very much for having me involved in the care of this very pleasant patient and wonderful family. If you have any questions, please feel free to contact me at [phone]. Nature of presenting problem: High severity Please note that, given the extensive number of diagnoses or management options , the extensor amount and/or complexity of data needed to be reviewed, and high risk of complications and/or morbidity or mortality, this qualifies as high complexity type of decision-making. Disclaimers: 1. Inadvertent spelling and grammatical errors are likely due to electronic health record (EHR)/dictation software used and do not reflect on the quality of delivered patient care. 2. The electronic timestamp recorded on this note does not necessarily reflect the actual date and time of the visit or the service. 3. Portions of this note may have been created through electronic templates and computer algorithms that might bring in information either from the system or from other physicians and providers. Please note that such information may or may not contain errors, the occurrence of which are outside of my control. In general (but not always) this happens either in the beginning or at the end of the note. The portion of the note that I have created are generally done in 1 continuous block of text, flanked at the beginning and at the end by " ", and entered into one field in the EHR. 4. There may be other unanticipated errors in the note that are outside of my control. I can only attest to the portions of the note that I have created. Updated clinical summary: Very pleasant and otherwise fairly healthy 57-year-old gentleman presenting with malignant appearing lesions in the lesser curvature proximal stomach as well as in mid body of the stomach with 5 cm ulcers found in each areas on EGD at [facility] on 09/07/2017. About 2 month history of symptoms starting July 2017. Also 10 pounds weight loss. Also status post colonoscopy same day showing 3 cm large pedunculated polyp in the ascending colon and evidence of right segmental colectomy with end-to-side ileocolonic anastomosis found along with moderate size internal hemorrhoids. Status post polypectomy plus Endo Clip placement. Comorbidities: 1. Anemia, status post transfusion [facility] 09/07/2017 2. Malnutrition, albumin 2.8 [facility] 09/07/2017 after hydration 3. Mention of history of resected "colon tumor" in the chart; surgery 1995; further details missing 4. Status post EGD 09/07/2017 at [facility]: Large clearly malignant ulcerated mass in the lesser curvature proximal stomach measures at least 5 cm. Biopsies obtained. Second large clearly malignant mass mid body of the stomach greater curvature measures at least 5 cm. Biopsies obtained. Otherwise normal EGD. 5. Status post colonoscopy 09/07/2017 at [facility]: Large approximately 3 cm pedunculated polyp in the ascending colon. Post right segmental colectomy with end-to-side ileocolonic anastomosis. Moderate-sized internal hemorrhoids. Otherwise normal colonoscopy . Status post polypectomy plus Endo Clip placement. CONSULTATION REQUESTED BY: Bhupendra Powell MD Dear Dr. Powell, Thank you very much for the opportunity to participate in the care of this very pleasant gentleman and his wonderful family. HISTORY OF PRESENT ILLNESS: The patient is a very pleasant 57-year-old man who otherwise has no major medical issues and only significant distant past history of surgical resection in 1995 of what was mentioned as: Tumor in the chart but no further details available from the patient or from the chart, who presented with 2 week history of abdominal upper epigastric discomfort and dyspnea on exertion. Symptoms were worse with intake of food and liquids. Had some dizziness on standing. About 2 month history of symptoms starting July 2017. Also 10 pounds weight loss. No significant change in appetite. No blood in the stool or urine. No prior history of similar symptoms in the past. Some recent difficulty with getting winded with exertion. Patient's workup included a full set of laboratory values which demonstrated anemia with hemoglobin of 7.1 that went down to 6.4 and required blood transfusions (2 units) and a CT scan that demonstrated dilated loops of small intestine and lymphadenopathy around the stomach. Status post EGD 09/07/2017 at [facility] : Large clearly malignant ulcerated mass in the lesser curvature proximal stomach measures at least 5 cm. Biopsies obtained. Second large clearly malignant mass mid body of the stomach greater curvature measures at least 5 cm. Biopsies obtained. Otherwise normal EGD. I was kindly asked consult regarding management of above findings. Note that the final pathology is pending. No other major complaints during my visit. ALLERGIES: NO KNOWN DRUG ALLERGIES MEDICATIONS Documented in the electronic records and reviewed by me. Please see the electronic records for details, as well as details for inpatient medications which were also reviewed by me. SOCIAL HISTORY: The patient lives with family. 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 REVIEW OF SYSTEMS: Other than mentioned above, there were no other pertinent positives or pertinent negatives in an otherwise complete 14 point review of systems. PHYSICAL EXAMINATION GENERAL: The patient appears to be a very pleasant of descent lying in bed, appearing stated age, and otherwise in no acute distress. BMI: 24.2 VITAL SIGNS: AVSS (please also see auto important data if available as well as the electronic records) HEENT: Normocephalic and atraumatic. Extraocular muscles and hearing are grossly intact bilaterally and symmetrically. Sclerae are nonicteric. Oral cavity is clear; oral mucosa appear to be pink and moist. Dentition: fair. NECK: Supple. There is no lymphadenopathy or JVD. There is no submental, submandibular or supraclavicular lymphadenopathy. CHEST: Rises symmetrically with each breath; patient is breathing comfortably. There are no audible wheezes, rales or rhonchi on the gross exam. HEART: Pulse is regular and palpable on the right wrist. Capillary refill is normal. Carotid pulses are palpable bilaterally and symmetrically in the neck. EXTREMITIES: Lower extremities contain no pitting edema around the ankles bilaterally and symmetrically. ABDOMEN: Abdomen is soft, nontender and nondistended. No evidence of ascites, organomegaly, caput medusae, engorged subcutaneous veins, or other abnormalities. There are no peritoneal signs or guarding. Well-healed infraumbilical midline incision without any evidence of erythema, edema, discharge, or hernia. SKIN: Appears to be pink and feels warm to touch. NEUROLOGIC: Awake, alert, and follows commands appropriately. LABORATORY DATA: See below IMAGING: See electronic chart. Please note that I've personally reviewed all pertinent available images and I agree in general with their overall reported findings. CT abdomen, pelvis and chest- reviewed and copy below Large circumferential infiltrative neoplasm involving the midbody of the stomach consistent with primary gastric cancer. Significant local regional lymphatic spread of neoplasm with abnormal pathologic perigastric and epigastric lymphadenopathy. Large and small nodules within the upper anterior omentum consistent with omental carcinomatosis. Postsurgical changes, status post previous right hemicolectomy, uncomplicated in appearance at this time. Consultation Date/Type/Reason Admit Date/Time Gastrointestinal: pain Psychological: nl mood/affect, no complaints Past Surgical History Past Surgical Hx: other Social History Alcohol Use: none Smoking Status: Never smoker Drug Use: none Exam/Review of Systems Vital Signs Vitals Vital Signs Date Time Temp Pulse Resp B/P Pulse Ox O2 Delivery O2 Flow Rate FiO2 09/08/17 13:41 98.0 65 20 120/64 99 09/07/17 18:44 Room Air 09/07/17 18:23 2.0 Intake and Output 09/07/17 09/07/17 09/08/17 15:00 23:00 07:00 Intake Total 550 ml 950 ml 1415 ml Output Total 200 ml Balance 550 ml 950 ml 1215 ml Results Result Diagram: 09/08/17 0542 09/08/17 0542 Results 24 hrs Laboratory Tests Test 09/07/17 19:48 09/08/17 05:42 09/08/17 07:04 Hemoglobin 9.5 #L 10.1 L Hematocrit 32.7 #L 34.5 L White Blood Count 11.9 #H Red Blood Count 5.23 # Mean Corpuscular Volume 66.0 L Mean Corpuscular Hemoglobin 19.3 #L Mean Corpuscular Hemoglobin Concent 29.3 L Red Cell Distribution Width 25.2 #H Platelet Count 489 H Mean Platelet Volume 9.6 Neutrophils % 71.1 Lymphocytes % 15.4 Monocytes % 9.2 Eosinophils % 3.3 Basophils % 0.7 Nucleated Red Blood Cells % 0.0 Neutrophils # 8.5 H Lymphocytes # 1.8 Monocytes # 1.1 H Eosinophils # 0.4 Basophils # 0.1 Nucleated Red Blood Cells # 0.0 Sodium Level 141 Potassium Level 4.1 Chloride Level 111 H Carbon Dioxide Level 22 Anion Gap 12 Blood Urea Nitrogen 3 L Creatinine 0.74 Glucose Level 108 Calcium Level 8.3 L Phosphorus Level 3.7 Magnesium Level 2.3 Lab Scanned Report BLOOD TRANSFUSION Medications Medications Current Medications Ferric Sodium Gluconate Complex 125 mg/Sodium Chloride 110 ml @ 110 mls/hr Q24H IVPB Last administered on 09/08/17 14:11; Admin Dose 110 MLS/HR; Start 09/06/17 at 14:30; Stop 09/10/17 at 15:29 Potassium Chloride/Dextrose/ Sodium Chloride (KCl/D5-NS) 1,005 ml @ 100 mls/hr Q10H3M IV Last administered on 09/08/17 14:11; Admin Dose 100 MLS/HR; Start 09/06/17 at 19:30 Morphine Sulfate (morphine) 2 mg Q3H PRN IV SEVERE PAIN LEVEL 7-10; Start at 17:30 Pantoprazole (Protonix Tab) 40 mg BID@06,18 PO ; Start 09/08/17 at 18:00 VALERIO STEWART M.D. Sep 08, 2017 17:11
[2017-09-08] MEDS: PANTOPRAZOLE (EC) 40 MG TAB PO SCH (17:21)
--- NOTE | 2017-09-08 18:14 | CONS ---
Date/Time of Note Date/Time of Note DATE: 09/08/17 TIME: 18:10 Assessment/Plan Assessment/Plan Chief Complaint/Hosp Course GASTRIC MASS, MOST LIKELY GASTRIC CANCER , ASSOCIATED WITH RADIOLOGICAL EVIDENCE OF PERITONEAL CARCINOMATOSIS POST EGD AWAIT PATH CT abdomen, pelvis and chest- Large circumferential infiltrative neoplasm involving the midbody of the stomach consistent with primary gastric cancer. Significant local regional lymphatic spread of neoplasm with abnormal pathologic perigastric and epigastric lymphadenopathy. Large and small nodules within the upper anterior omentum consistent with omental carcinomatosis. Postsurgical changes, status post previous right hemicolectomy, uncomplicated in appearance at this time. CT CHEST - NEG IF NEOPLASM CONFIRM - PT IS A CANDIDATE FOR CHEMOTHERAPY WILL D/W ALEA RE - diagnostic laparoscopy and biopsy with abdominal washings to delineate the extent and stage of this disease History of colon neoplasm post surgery, SANDRINE Iron deficiency anemia- stable MONITOR CLOSELY Abdominal pain Problems: Consultation Date/Type/Reason Admit Date/Time Date of Consultation: Sep 08, 2017 Type of Consultation: HEMEON Reason for Consultation GASTRIC CANCER Referring Provider: LINDSEY AVALOS Hx of Present Illness 57 yo male wiht remote histoyr of resected "colon tumor" who presents with epigastric discomfort and dyspena on exertion. Patient describes two weeks of symptoms. Has had epigastric burning sensation, seems worse with food/liquids. Has also noticed getting more winded w exertion. Also some dizziness with standing. Found to have profound microcytic anemia and iron deficiency. He denies any melena or hematochezia. Normal bowel habits. No dysphagia or early satiety. No weight loss. Curerntly comfortable. PMH/Family/Social PMH/Family/Social Past Medical History Histoyr of colon "tumor" with srugical resectino in 1995 Past Surgical History Past Surgical Hx: other Family History Significant Family History: no pertinent family hx Social History Alcohol Use: none Smoking Status: Never smoker Drug Use: none Gastrointestinal: pain Psychological: nl mood/affect, no complaints Past Surgical History Past Surgical Hx: other Social History Alcohol Use: none Smoking Status: Never smoker Drug Use: none Exam/Review of Systems Vital Signs Vitals Vital Signs Date Time Temp Pulse Resp B/P Pulse Ox O2 Delivery O2 Flow Rate FiO2 09/08/17 13:41 98.0 65 20 120/64 99 09/07/17 18:44 Room Air 09/07/17 18:23 2.0 Intake and Output 09/07/17 09/07/17 09/08/17 15:00 23:00 07:00 Intake Total 550 ml 950 ml 1415 ml Output Total 200 ml Balance 550 ml 950 ml 1215 ml Exam Exam Constitutional: alert, oriented, well developed Psych: nl mood/affect, no complaints Head: atraumatic, normocephalic Eyes: EOMI, PERRL, nl conjunctiva, nl lids, nl sclera ENMT: nl external ears & nose, nl lips & teeth, nl nasal mucosa & septum Neck: non-tender, supple Respiratory: clear to auscultation, normal air movement Cardiovascular: nl pulses, regular rate and rhythm Gastrointestinal: nl liver, spleen, non-tender, soft Musculoskeletal: nl extremities to inspection Extremities: normal pulses Neurological: SOCIAL WORK NURSE II-XII intact, nl mental status, nl speech, nl strength Skin: nl turgor, No rash or lesions Lymph: nl lymph nodes Results Result Diagram: 09/08/17 0542 09/08/17 0542 Results 24 hrs Laboratory Tests Test 09/07/17 19:48 09/08/17 05:42 09/08/17 07:04 Hemoglobin 9.5 #L 10.1 L Hematocrit 32.7 #L 34.5 L White Blood Count 11.9 #H Red Blood Count 5.23 # Mean Corpuscular Volume 66.0 L Mean Corpuscular Hemoglobin 19.3 #L Mean Corpuscular Hemoglobin Concent 29.3 L Red Cell Distribution Width 25.2 #H Platelet Count 489 H Mean Platelet Volume 9.6 Neutrophils % 71.1 Lymphocytes % 15.4 Monocytes % 9.2 Eosinophils % 3.3 Basophils % 0.7 Nucleated Red Blood Cells % 0.0 Neutrophils # 8.5 H Lymphocytes # 1.8 Monocytes # 1.1 H Eosinophils # 0.4 Basophils # 0.1 Nucleated Red Blood Cells # 0.0 Sodium Level 141 Potassium Level 4.1 Chloride Level 111 H Carbon Dioxide Level 22 Anion Gap 12 Blood Urea Nitrogen 3 L Creatinine 0.74 Glucose Level 108 Calcium Level 8.3 L Phosphorus Level 3.7 Magnesium Level 2.3 Lab Scanned Report BLOOD TRANSFUSION Imaging Free Text/Dictation [place] [id number] Radiology Main Line: [phone] DIAGNOSTIC IMAGING REPORT Patient: KATE PARADA : 1960 Age: 57 Sex: M MR #: [id number] [facility] #: [id number] DOS: 09/07/17 0000 Ordering MD: JAG MALIK MD Location: [facility] Room/Bed: 614-A PROCEDURE: CT Chest, Abdomen and Pelvis [<with>] contrast. CLINICAL INDICATION: Colon tumor. Gastric mass. Evaluate for neoplasm. TECHNIQUE: CT scan of the chest, abdomen, and pelvis [<with>] contrast was performed on a multi-detector high-resolution CT scanner. The patient was scanned [<following the uncomplicated intravenous administration of 100 cc of Omnipaque 300>] intravenous contrast. Coronal and sagittal reformatted images were obtained from the axial source images. CTDI equals 9.04 mGy, DLP equals 661.26 mGy-cm. One or more of the following dose reduction techniques were used: - Automated exposure control. - Adjustment of the mA and/or kV according to patient size. - Use of iterative reconstruction technique. COMPARISON: None available FINDINGS: CT CHEST: Lungs: Dense linear atelectasis is seen in the posterior lung bases bilaterally. Small benign calcified granuloma is seen in the right middle lobe. Airways: Normal. Pleura: Normal. Mediastinum: Normal. Cardiovascular: Normal. Lymph nodes: No adenopathy. Musculoskeletal: Normal. CT ABDOMEN/PELVIS: Liver: Tiny 1 cm cystic lesion in the superior dome of the liver, too small to characterize. Otherwise, normal enhancement throughout the liver parenchyma. Patent portal vein. Biliary: Normal gallbladder. No biliary dilatation. Pancreas: Normal. Spleen: Normal. Adrenal Glands: Normal. Genitourinary: Normal. The bladder is partially collapsed and decompressed. Gastrointestinal: Severe abnormal thickening of the mid body of the stomach in a circumferential manner. Postsurgical changes, status post right hemicolectomy , with uncomplicated appearances of the ileocolonic anastomosis. Mild air- filled gaseous distension of the bowel loops throughout the abdominal cavity is seen. Lymph nodes: Significant pathologic adenopathy is seen within the perigastric and upper epigastric panchito stations. The largest lymph node in the upper perigastric space measures 13 mm in short axis dimension. Several surgical clips are seen within the splenic flexure of the colon. Vascular: Normal. Peritoneum/mesentery: Large nodule in the mid upper anterior omentum adjacent to the anterior wall of the stomach measuring 3.1 cm in maximal dimension, consistent with local regional omental metastasis. Additional smaller omental neoplastic implants are seen as well. Reproductive organs: Normal. Musculoskeletal: Multilevel degenerative enthesopathy of the spine. IMPRESSION: 1. Large circumferential infiltrative neoplasm involving the midbody of the stomach consistent with primary gastric cancer. 2. Significant local regional lymphatic spread of neoplasm with abnormal pathologic perigastric and epigastric lymphadenopathy. 3. Large and small nodules within the upper anterior omentum consistent with omental carcinomatosis. 4. Postsurgical changes, status post previous right hemicolectomy, uncomplicated in appearance at this time. RPTAT: HMJB .Mik Rodas MD, MD Date Time Electronically viewed and signed by .Mik Rodas MD, MD on 09/08/2017 09:21 .B/ CC: JAG MALIK MD Medications Medications Current Medications Ferric Sodium Gluconate Complex 125 mg/Sodium Chloride 110 ml @ 110 mls/hr Q24H IVPB Last administered on 09/08/17 14:11; Admin Dose 110 MLS/HR; Start 09/06/17 at 14:30; Stop 09/10/17 at 15:29 Potassium Chloride/Dextrose/ Sodium Chloride (KCl/D5-NS) 1,005 ml @ 100 mls/hr Q10H3M IV Last administered on 09/08/17 14:11; Admin Dose 100 MLS/HR; Start 09/06/17 at 19:30 Morphine Sulfate (morphine) 2 mg Q3H PRN IV SEVERE PAIN LEVEL 7-10; Start at 17:30 Pantoprazole (Protonix Tab) 40 mg BID@06,18 PO Last administered on 09/08/17 17:21; Admin Dose 40 MG; Start 09/08/17 at 18:00 Procedures Procedures [place] [id number] Radiology Main Line: [phone] DIAGNOSTIC IMAGING REPORT Patient: KATE PARADA : 1960 Age: 57 Sex: M MR #: [id number] [facility] #: [id number] DOS: 09/07/17 0000 Ordering MD: JAG MALIK MD Location: [facility] Room/Bed: 614-A PROCEDURE: CT Chest, Abdomen and Pelvis [<with>] contrast. CLINICAL INDICATION: Colon tumor. Gastric mass. Evaluate for neoplasm. TECHNIQUE: CT scan of the chest, abdomen, and pelvis [<with>] contrast was performed on a multi-detector high-resolution CT scanner. The patient was scanned [<following the uncomplicated intravenous administration of 100 cc of Omnipaque 300>] intravenous contrast. Coronal and sagittal reformatted images were obtained from the axial source images. CTDI equals 9.04 mGy, DLP equals 661.26 mGy-cm. One or more of the following dose reduction techniques were used: - Automated exposure control. - Adjustment of the mA and/or kV according to patient size. - Use of iterative reconstruction technique. COMPARISON: None available FINDINGS: CT CHEST: Lungs: Dense linear atelectasis is seen in the posterior lung bases bilaterally. Small benign calcified granuloma is seen in the right middle lobe. Airways: Normal. Pleura: Normal. Mediastinum: Normal. Cardiovascular: Normal. Lymph nodes: No adenopathy. Musculoskeletal: Normal. CT ABDOMEN/PELVIS: Liver: Tiny 1 cm cystic lesion in the superior dome of the liver, too small to characterize. Otherwise, normal enhancement throughout the liver parenchyma. Patent portal vein. Biliary: Normal gallbladder. No biliary dilatation. Pancreas: Normal. Spleen: Normal. Adrenal Glands: Normal. Genitourinary: Normal. The bladder is partially collapsed and decompressed. Gastrointestinal: Severe abnormal thickening of the mid body of the stomach in a circumferential manner. Postsurgical changes, status post right hemicolectomy , with uncomplicated appearances of the ileocolonic anastomosis. Mild air- filled gaseous distension of the bowel loops throughout the abdominal cavity is seen. Lymph nodes: Significant pathologic adenopathy is seen within the perigastric and upper epigastric panchito stations. The largest lymph node in the upper perigastric space measures 13 mm in short axis dimension. Several surgical clips are seen within the splenic flexure of the colon. Vascular: Normal. Peritoneum/mesentery: Large nodule in the mid upper anterior omentum adjacent to the anterior wall of the stomach measuring 3.1 cm in maximal dimension, consistent with local regional omental metastasis. Additional smaller omental neoplastic implants are seen as well. Reproductive organs: Normal. Musculoskeletal: Multilevel degenerative enthesopathy of the spine. IMPRESSION: 1. Large circumferential infiltrative neoplasm involving the midbody of the stomach consistent with primary gastric cancer. 2. Significant local regional lymphatic spread of neoplasm with abnormal pathologic perigastric and epigastric lymphadenopathy. 3. Large and small nodules within the upper anterior omentum consistent with omental carcinomatosis. 4. Postsurgical changes, status post previous right hemicolectomy, uncomplicated in appearance at this time. RPTAT: HMJB .Mik Rodas MD, Date Time Electronically viewed and signed by .Mik Rodas MD, on 09/08/2017 09:22 .B/ CC: JAG MALIK MD, VERA M MD Sep 08, 2017 18:14
[2017-09-08 19:52] VITALS: BP 117/63; RESP 18
[2017-09-09] MEDS: POTASSIUM CHLORIDE 10 MEQ in DEXTROSE 5%-0.9% NACL 1,000 ML IV SCH ×2 (01:57→14:26)
[2017-09-09 02:00] VITALS: BP 115/71; RESP 18
[2017-09-09] MEDS: PANTOPRAZOLE (EC) 40 MG TAB PO SCH ×2 (05:58→17:21)
[2017-09-09 06:13] LABS: ABNORMAL IP MESSAGE 1; BASOPHIL # 0.1 10^3/ul (0.0-0.1); BASOPHILS % 0.4 % (0.0-2.0); EOSINOPHILS # 0.3 10^3/ul (0.0-0.5); EOSINOPHILS % 2.5 % (0.0-7.0); HEMATOCRIT 33.3 % (42.0-52.0); HEMOGLOBIN 9.7 g/dl (14.0-18.0); LYMPHOCYTES # 1.8 10^3/ul (0.8-2.9); LYMPHOCYTES % 13.3 % (15.0-51.0); MEAN CORPUSCULAR HEMOGLOBIN 19.3 pg (29.0-33.0); MEAN CORPUSCULAR HGB CONC 29.1 g/dl (32.0-37.0); MEAN CORPUSCULAR VOLUME 66.3 fl (82.0-101.0); MEAN PLATELET VOLUME 9.7 fl (7.4-10.4); MONOCYTE # 1.1 10^3/ul (0.3-0.9); MONOCYTES % 8.5 % (0.0-11.0); NEUTROPHIL # 10.1 10^3/ul (1.6-7.5); NEUTROPHILS % 74.9 % (39.0-77.0); PLATELET COUNT 452 10^3/UL (140-415); POSITIVE DIFF @See below; RED BLOOD COUNT 5.02 10^6/ul (4.70-6.10); RED CELL DISTRIBUTION WIDTH 26.4 % (11.5-14.5); WHITE BLOOD COUNT 13.5 10^3/ul (4.8-10.8)
[2017-09-09 06:42] LABS: CALCIUM 8.1 mg/dl (8.4-10.2); CREATININE 0.76 mg/dl (0.61-1.24); POTASSIUM 4.3 mmol/L (3.5-5.1)
[2017-09-09 08:00] VITALS: BP 118/70; RESP 18
--- NOTE | 2017-09-09 10:25 | PN ---
Date/Time of Note Date/Time of Note DATE: 09/09/17 TIME: 10:16 Assessment/Plan VTE Prophylaxis VTE Prophylaxis Intervention: SCD's Lines/Catheters [facility] Saline Lock Assessment/Plan Chief Complaint/Hosp Course Assessment: History of colon neoplasm post surgery Iron deficiency anemia- stable Abdominal pain EGD Large clearly malignant ulcerated mass in the lesser curvature proximal stomach measures at least 5 cm. Biopsies obtained Second large clearly malignant mass mid body of the stomach greater curvature measures at least 5 cm. Biopsies obtained Otherwise normal EGD Colonoscopy: Large approximately 3 cm pedunculated polyp in the ascending colon. Post right segmental colectomy with end-to-side ileocolonic anastomosis Moderate-sized internal hemorrhoids Otherwise normal colonoscopy Plan: Review pathology Continue PPI therapy CT abdomen, pelvis and chest- reviewed and copy below Large circumferential infiltrative neoplasm involving the midbody of the stomach consistent with primary gastric cancer. Significant local regional lymphatic spread of neoplasm with abnormal pathologic perigastric and epigastric lymphadenopathy. Large and small nodules within the upper anterior omentum consistent with omental carcinomatosis. Postsurgical changes, status post previous right hemicolectomy, uncomplicated in appearance at this time. Has been seen by Onc and Surgery- will move forward pending results of pathology Continue diet monitor H/H She is seen in collaboration with Dr. Jones Subjective: Course reviewed with nursing staff Patient interviewed and examined All labs, imaging and other results reviewed The patient feels well, with a fair appetite Plan of vare based on pathology report Problems: Exam/Review of Systems Vital Signs Vitals Vital Signs Date Time Temp Pulse Resp B/P Pulse Ox O2 Delivery O2 Flow Rate FiO2 09/09/17 08:00 99.0 80 18 118/70 99 09/07/17 18:44 Room Air 09/07/17 18:23 2.0 Intake and Output 09/08/17 09/08/17 09/09/17 15:00 23:00 07:00 Intake Total 955 ml 1250 ml 1555 ml Output Total 350 ml Balance 955 ml 900 ml 1555 ml Exam Constitutional: alert, oriented Psych: no complaints Head: atraumatic, normocephalic Eyes: nl conjunctiva ENMT: nl external ears & nose, nl lips & teeth Neck: supple Respiratory: clear to auscultation Cardiovascular: regular rate and rhythm Gastrointestinal: bowel sounds, No ascites, No hepatomegaly, No rebound or guarding, No splenomegaly, No tender Results Result Diagram: 09/09/17 0532 09/09/17 0532 Results 24 hrs Laboratory Tests Test 09/09/17 05:32 White Blood Count 13.5 H Red Blood Count 5.02 Hemoglobin 9.7 L Hematocrit 33.3 L Mean Corpuscular Volume 66.3 L Mean Corpuscular Hemoglobin 19.3 L Mean Corpuscular Hemoglobin Concent 29.1 L Red Cell Distribution Width 26.4 H Platelet Count 452 H Mean Platelet Volume 9.7 Neutrophils % 74.9 Lymphocytes % 13.3 L Monocytes % 8.5 Eosinophils % 2.5 Basophils % 0.4 Nucleated Red Blood Cells % 0.0 Neutrophils # 10.1 H Lymphocytes # 1.8 Monocytes # 1.1 H Eosinophils # 0.3 Basophils # 0.1 Nucleated Red Blood Cells # 0.0 Sodium Level 140 Potassium Level 4.3 Chloride Level 113 H Carbon Dioxide Level 20 L Anion Gap 11 Blood Urea Nitrogen 6 L Creatinine 0.76 Glucose Level 96 Calcium Level 8.1 L Medications Medications Current Medications Ferric Sodium Gluconate Complex 125 mg/Sodium Chloride 110 ml @ 110 mls/hr Q24H IVPB Last administered on 09/08/17 14:11; Admin Dose 110 MLS/HR; Start 09/06/17 at 14:30; Stop 09/10/17 at 15:29 Potassium Chloride/Dextrose/ Sodium Chloride (KCl/D5-NS) 1,005 ml @ 100 mls/hr Q10H3M IV Last administered on 09/09/17 01:57; Admin Dose 100 MLS/HR; Start 09/06/17 at 19:30 Morphine Sulfate (morphine) 2 mg Q3H PRN IV SEVERE PAIN LEVEL 7-10; Start at 17:30 Pantoprazole (Protonix Tab) 40 mg BID@06,18 PO Last administered on 09/09/17 05:58; Admin Dose 40 MG; Start 09/08/17 at 18:00 SARA PRINCE Sep 09, 2017 10:25
--- NOTE | 2017-09-09 11:26 | PN ---
Date/Time of Note Date/Time of Note DATE: 09/09/17 TIME: 11:24 Assessment/Plan VTE Prophylaxis VTE Prophylaxis Intervention: SCD's Lines/Catheters [facility] Saline Lock Assessment/Plan Chief Complaint/Hosp Course 1. Abdominal pain with microcytic anemia EGD showed 2 gastric masses suspicious for malignancy, oncology and surgery consult appreciated, follow-up on biopsy results If biopsy does indeed confirm gastric carcinoma patient will need diagnostic laparoscopy and biopsy with abdominal washings to delineate the extent and stage of this disease CT abdomen is also showed gastric mass as well as metastasis with omental carcinomatosis Continue Ferrlecit, continue Protonix Pain control 2. History of colon cancer 3. Hypokalemia Repleted Prophylaxis: SCDs Problems: Subjective 24 Hr Interval Summary Constitutional: no complaints Exam/Review of Systems Vital Signs Vitals Vital Signs Date Time Temp Pulse Resp B/P Pulse Ox O2 Delivery O2 Flow Rate FiO2 09/09/17 08:00 99.0 80 18 118/70 99 09/07/17 18:44 Room Air 09/07/17 18:23 2.0 Intake and Output 09/08/17 09/08/17 09/09/17 15:00 23:00 07:00 Intake Total 955 ml 1250 ml 1555 ml Output Total 350 ml Balance 955 ml 900 ml 1555 ml Exam Constitutional: alert, oriented Respiratory: clear to auscultation Cardiovascular: regular rate and rhythm Gastrointestinal: soft, No distended Musculoskeletal: nl extremities to inspection Results Result Diagram: 09/09/17 0532 09/09/17 0532 Results 24 hrs Laboratory Tests Test 09/09/17 05:32 White Blood Count 13.5 H Red Blood Count 5.02 Hemoglobin 9.7 L Hematocrit 33.3 L Mean Corpuscular Volume 66.3 L Mean Corpuscular Hemoglobin 19.3 L Mean Corpuscular Hemoglobin Concent 29.1 L Red Cell Distribution Width 26.4 H Platelet Count 452 H Mean Platelet Volume 9.7 Neutrophils % 74.9 Lymphocytes % 13.3 L Monocytes % 8.5 Eosinophils % 2.5 Basophils % 0.4 Nucleated Red Blood Cells % 0.0 Neutrophils # 10.1 H Lymphocytes # 1.8 Monocytes # 1.1 H Eosinophils # 0.3 Basophils # 0.1 Nucleated Red Blood Cells # 0.0 Sodium Level 140 Potassium Level 4.3 Chloride Level 113 H Carbon Dioxide Level 20 L Anion Gap 11 Blood Urea Nitrogen 6 L Creatinine 0.76 Glucose Level 96 Calcium Level 8.1 L Medications Medications Current Medications Ferric Sodium Gluconate Complex 125 mg/Sodium Chloride 110 ml @ 110 mls/hr Q24H IVPB Last administered on 09/08/17 14:11; Admin Dose 110 MLS/HR; Start 09/06/17 at 14:30; Stop 09/10/17 at 15:29 Potassium Chloride/Dextrose/ Sodium Chloride (KCl/D5-NS) 1,005 ml @ 100 mls/hr Q10H3M IV Last administered on 09/09/17 01:57; Admin Dose 100 MLS/HR; Start 09/06/17 at 19:30 Morphine Sulfate (morphine) 2 mg Q3H PRN IV SEVERE PAIN LEVEL 7-10; Start at 17:30 Pantoprazole (Protonix Tab) 40 mg BID@06,18 PO Last administered on 09/09/17 05:58; Admin Dose 40 MG; Start 09/08/17 at 18:00 LINDSEY AVALOS Sep 09, 2017 11:26
--- NOTE | 2017-09-09 12:44 | PN ---
Date/Time of Note Date/Time of Note DATE: 09/09/17 TIME: 12:44 Assessment/Plan Lines/Catheters IV C[facility]ter [facility] ([facility] Saline Lock Assessment/Plan Assessment/Plan [facility] Progress Note Date of Service: 09/09/2017 Location of Service: 6 floor Today's Assessment & Plan: Overall stable and doing well.. Abdomen remains benign. No indication for acute surgical intervention. Awaiting path results. Discussed with interventional radiology (appreciate Dr. Bocanegra's input). No obvious areas to biopsy percutaneously outside of the area of future gastric resection and for this reason, we will await arrival of final pathology report prior to further planning. Previous assessments that applies today: A very-pleasant 57-year-old gentleman who otherwise has been fairly healthy without significant prior comorbid issues, presenting with a picture consistent with gastric malignancy with possible spread. Final pathology is pending. Patient can benefit from multidisciplinary care and may require set up for diagnostic laparoscopy and biopsy with abdominal washings to delineate the extent and stage of this disease per NCCN guidelines. If no evidence of obvious stage IV disease, then aggressive chemotherapy would be indicated. With above assessment, I've recommended the following for today: 1. Continue current cares 2. Further plans pending final pathology results 3. Patient appears to be stable enough for discharge from surgical standpoint, but this should be reviewed carefully from a medical standpoint prior to discharge 4. I would be happy to follow the patient as an outpatient and continue the workup and treatment Thank you very much for having me involved in the care of this very pleasant patient and wonderful family. If you have any questions, please feel free to contact me at [phone]. Nature of presenting problem: High severity Please note that, given the extensive number of diagnoses or management options , the extensor amount and/or complexity of data needed to be reviewed, and high risk of complications and/or morbidity or mortality, this qualifies as high complexity type of decision-making. Disclaimers: 1. Inadvertent spelling and grammatical errors are likely due to electronic health record (EHR)/dictation software used and do not reflect on the quality of delivered patient care. 2. The electronic timestamp recorded on this note does not necessarily reflect the actual date and time of the visit or the service. 3. Portions of this note may have been created through electronic templates and computer algorithms that might bring in information either from the system or from other physicians and providers. Please note that such information may or may not contain errors, the occurrence of which are outside of my control. In general (but not always) this happens either in the beginning or at the end of the note. The portion of the note that I have created are generally done in 1 continuous block of text, flanked at the beginning and at the end by " ", and entered into one field in the EHR. 4. There may be other unanticipated errors in the note that are outside of my control. I can only attest to the portions of the note that I have created. Updated clinical summary: Very pleasant and otherwise fairly healthy 57-year-old gentleman presenting with malignant appearing lesions in the lesser curvature proximal stomach as well as in mid body of the stomach with 5 cm ulcers found in each areas on EGD at [facility] on 09/07/2017. About 2 month history of symptoms starting July 2017. Also 10 pounds weight loss. Also status post colonoscopy same day showing 3 cm large pedunculated polyp in the ascending colon and evidence of right segmental colectomy with end-to-side ileocolonic anastomosis found along with moderate size internal hemorrhoids. Status post polypectomy plus Endo Clip placement. Comorbidities: 1. Anemia, status post transfusion [facility] 09/07/2017 2. Malnutrition, albumin 2.8 [facility] 09/07/2017 after hydration 3. Mention of history of resected "colon tumor" in the chart; surgery 1995; further details missing 4. Status post EGD 09/07/2017 at [facility]: Large clearly malignant ulcerated mass in the lesser curvature proximal stomach measures at least 5 cm. Biopsies obtained. Second large clearly malignant mass mid body of the stomach greater curvature measures at least 5 cm. Biopsies obtained. Otherwise normal EGD. 5. Status post colonoscopy 09/07/2017 at [facility]: Large approximately 3 cm pedunculated polyp in the ascending colon. Post right segmental colectomy with end-to-side ileocolonic anastomosis. Moderate-sized internal hemorrhoids. Otherwise normal colonoscopy . Status post polypectomy plus Endo Clip placement. Subjective: No major events or complaints; no major abd pain and under control with medications; no n/v/d; no sob or cp; + bowel activity; + activity Objective: Vitals: See below Exam: GENERAL: On exam, the patient was sitting up in a chair and appeared to be comfortable and in no acute distress. ABDOMEN: Soft, nontender and nondistended. There are no peritoneal signs or guarding. SKIN: Skin appears to be pink and feels warm to touch. NEUROLOGIC: Patient is awake, alert, and follows commands appropriately. Exam/Review of Systems Vital Signs Vitals Vital Signs Date Time Temp Pulse Resp B/P Pulse Ox O2 Delivery O2 Flow Rate FiO2 09/09/17 08:00 99.0 80 18 118/70 99 09/07/17 18:44 Room Air 09/07/17 18:23 2.0 Intake and Output 09/08/17 09/08/17 09/09/17 15:00 23:00 07:00 Intake Total 955 ml 1250 ml 1555 ml Output Total 350 ml Balance 955 ml 900 ml 1555 ml Results Result Diagram: 09/09/17 0532 09/09/17 0532 VALERIO STEWART M.D. Sep 09, 2017 12:44
[2017-09-09 13:34] VITALS: BP 117/73; RESP 14
[2017-09-09] MEDS: morphine 2 MG INJ IV PRN (14:08)
[2017-09-09] MEDS: SOD FERRIC GLUC COMPLX 125 MG in SOD CHLORIDE 0.9% 100 ML IVPB SCH (15:11)
[2017-09-09 20:00] VITALS: BP 122/73; RESP 18
--- NOTE | 2017-09-09 22:13 | CONS ---
Date/Time of Note Date/Time of Note DATE: 09/09/17 TIME: 22:05 Assessment/Plan Assessment/Plan Chief Complaint/Hosp Course GASTRIC CANCER , ASSOCIATED WITH RADIOLOGICAL EVIDENCE OF PERITONEAL CARCINOMATOSIS POST EGD PATH Gastric mid-body mass, biopsies: Moderately to poorly-differentiated adenocarcinoma, CT abdomen, pelvis and chest- Large circumferential infiltrative neoplasm involving the midbody of the stomach consistent with primary gastric cancer. Significant local regional lymphatic spread of neoplasm with abnormal pathologic perigastric and epigastric lymphadenopathy. Large and small nodules within the upper anterior omentum consistent with omental carcinomatosis. Postsurgical changes, status post previous right hemicolectomy, uncomplicated in appearance at this time. CT CHEST - NEG PT IS A CANDIDATE FOR CHEMOTHERAPY for metastatic gastric cancer WILL D/W ALEA - i think we can omit diagnostic laparoscopy and biopsy with abdominal washings to delineate the extent and stage of this disease , its clear that pt has metastatic dis History of colon neoplasm post surgery, SANDRINE Iron deficiency anemia- stable MONITOR CLOSELY Abdominal pain Problems: Consultation Date/Type/Reason Admit Date/Time Sep 06, 2017 at 10:46 Initial Consult Date 09/08/17 Type of Consultation: [facility] Referring Provider: LINDSEY AVALOS Exam/Review of Systems Vital Signs Vitals Vital Signs Date Time Temp Pulse Resp B/P Pulse Ox O2 Delivery O2 Flow Rate FiO2 09/09/17 20:00 98.7 85 18 122/73 99 09/07/17 18:44 Room Air 09/07/17 18:23 2.0 Intake and Output 09/08/17 09/08/17 09/09/17 15:00 23:00 07:00 Intake Total 955 ml 1250 ml 1555 ml Output Total 350 ml Balance 955 ml 900 ml 1555 ml Results Result Diagram: 09/09/17 0532 09/09/17 0532 Results 24 hrs Laboratory Tests Test 09/09/17 05:32 White Blood Count 13.5 H Red Blood Count 5.02 Hemoglobin 9.7 L Hematocrit 33.3 L Mean Corpuscular Volume 66.3 L Mean Corpuscular Hemoglobin 19.3 L Mean Corpuscular Hemoglobin Concent 29.1 L Red Cell Distribution Width 26.4 H Platelet Count 452 H Mean Platelet Volume 9.7 Neutrophils % 74.9 Lymphocytes % 13.3 L Monocytes % 8.5 Eosinophils % 2.5 Basophils % 0.4 Nucleated Red Blood Cells % 0.0 Neutrophils # 10.1 H Lymphocytes # 1.8 Monocytes # 1.1 H Eosinophils # 0.3 Basophils # 0.1 Nucleated Red Blood Cells # 0.0 Sodium Level 140 Potassium Level 4.3 Chloride Level 113 H Carbon Dioxide Level 20 L Anion Gap 11 Blood Urea Nitrogen 6 L Creatinine 0.76 Glucose Level 96 Calcium Level 8.1 L Medications Medications Current Medications Ferric Sodium Gluconate Complex 125 mg/Sodium Chloride 110 ml @ 110 mls/hr Q24H IVPB Last administered on 09/09/17 15:11; Admin Dose 110 MLS/HR; Start 09/06/17 at 14:30; Stop 09/10/17 at 15:29 Potassium Chloride/Dextrose/ Sodium Chloride (KCl/D5-NS) 1,005 ml @ 100 mls/hr Q10H3M IV Last administered on 09/09/17 14:26; Admin Dose 100 MLS/HR; Start 09/06/17 at 19:30 Morphine Sulfate (morphine) 2 mg Q3H PRN IV SEVERE PAIN LEVEL 7-10 Last administered on 09/09/17 14:08; Admin Dose 2 MG; Start 09/07/17 at 17:30 Pantoprazole (Protonix Tab) 40 mg BID@06,18 PO Last administered on 09/09/17 17:21; Admin Dose 40 MG; Start 09/08/17 at 18:00 Procedures Procedures [facility] [place] [place] [address] ; Lab No: [id number] Date: 09/07/2017 SPECIMEN: A-Mid body gastric mass biopsy B-Gastric fundus mass, lesser curvature of stomach biopsy C-Ascending colon polyp biopsy CLINICAL: Anemia GROSS EXAMINATION: A-Received in formalin are ten fragments of reyna-white translucent tissue that measure less than 0.1 cm in greatest dimension up to 0.4 x 0.2 x 0.1 cm. Totally submitted in cassette A. B-Received in formalin are six fragments of reyna-rojas soft tissue that measure 0.1 x 0.1 x less than 0.1 cm up to 0.3 x 0.2 x 0.1 cm. Totally submitted in cassette B. C-Received in formalin is a multilobulated rojas-brown polyp that measures 2.2 x 1.9 x 1.8 cm. A margin is not identified. Sectioned and totally submitted in four cassettes, C1 -C4. MICROSCOPIC DIAGNOSIS: A-Gastric mid-body mass, biopsies: -- Moderately to poorly-differentiated adenocarcinoma, intestinal type with focal ulceration, associated with acute fibrinoneutrophilic exudate. -- Moderate chronic gastritis with intestinal metaplasia. -- A Giemsa stain with an appropriate control is negative for Helicobacter pylori organisms. B-Gastric fundal mass, lesser curvature, biopsies: -- Invasive moderately-differentiated adenocarcinoma, intestinal type with surface ulceration, diffusely involving all fragments. -- A Giemsa stain with an appropriate control is negative for Helicobacter pylori organisms. 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 -- Resection polyp margin is free of adenoma. -- No invasive carcinoma is identified. Continued Next Page . . . COMMENT: The above findings are reported to Dr. Patsy Jones on 09/09/2017. MP/WS/db/tm Date of Service: 09/07/17; Date Received: 09/08/17 Dictated: 09/09/17; Transcribed: 09/09/17; Sent by Fax: 09/09/17; Reviewed: ZIA Burden M.D. Pathologist Electronically Signed 09/09/2017 MARILYN SCOTT M.D. 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 M. NICHOLAS STRATTON MD Sep 09, 2017 22:13
[2017-09-10] MEDS: POTASSIUM CHLORIDE 10 MEQ in DEXTROSE 5%-0.9% NACL 1,000 ML IV SCH ×3 (00:51→14:16)
[2017-09-10 02:00] VITALS: BP 120/66; RESP 18
[2017-09-10] MEDS: morphine 2 MG INJ IV PRN (05:23)
[2017-09-10] MEDS: PANTOPRAZOLE (EC) 40 MG TAB PO SCH ×2 (05:59→18:44)
[2017-09-10 07:29] VITALS: BP 118/76; RESP 20
--- NOTE | 2017-09-10 09:06 | PN ---
Date/Time of Note Date/Time of Note DATE: 09/10/17 TIME: 09:02 Assessment/Plan Lines/Catheters IV Catheter Type (from [facility]): Peripheral IV Assessment/Plan Assessment/Plan [facility] Progress Note Date of Service: 09/10/2017 Location of Service: 6 floor Today's Assessment & Plan: Overall stable and doing well. Biopsy shows adenocarcinoma. Overall picture c/w primary gastric origin. Abdomen remains benign. No indication for acute surgical intervention. Since surgery will not change oncologic management, will not perform diagnostic laparoscopy. Explained to patient (no family in the room). Answered all questions. Patient appeared to understand and agreed. With above assessment, I've recommended the following for today: 1. Continue current cares 2. Further plans per Dr. Parson, team and patient's PCP 3. I will sign off. Please call if any questions Thank you very much for having me involved in the care of this very pleasant patient and wonderful family. If you have any questions, please feel free to contact me at [phone]. Nature of presenting problem: High severity Please note that, given the extensive number of diagnoses or management options , the extensor amount and/or complexity of data needed to be reviewed, and high risk of complications and/or morbidity or mortality, this qualifies as high complexity type of decision-making. Disclaimers: 1. Inadvertent spelling and grammatical errors are likely due to electronic health record (EHR)/dictation software used and do not reflect on the quality of delivered patient care. 2. The electronic timestamp recorded on this note does not necessarily reflect the actual date and time of the visit or the service. 3. Portions of this note may have been created through electronic templates and computer algorithms that might bring in information either from the system or from other physicians and providers. Please note that such information may or may not contain errors, the occurrence of which are outside of my control. In general (but not always) this happens either in the beginning or at the end of the note. The portion of the note that I have created are generally done in 1 continuous block of text, flanked at the beginning and at the end by " ", and entered into one field in the EHR. 4. There may be other unanticipated errors in the note that are outside of my control. I can only attest to the portions of the note that I have created. Updated clinical summary: Very pleasant and otherwise fairly healthy 57-year-old gentleman presenting with malignant appearing lesions in the lesser curvature proximal stomach as well as in mid body of the stomach with 5 cm ulcers found in each areas on EGD at [facility] on 09/07/2017. About 2 month history of symptoms starting July 2017. Also 10 pounds weight loss. Also status post colonoscopy same day showing 3 cm large pedunculated polyp in the ascending colon and evidence of right segmental colectomy with end-to-side ileocolonic anastomosis found along with moderate size internal hemorrhoids. Status post polypectomy plus Endo Clip placement. Comorbidities: 1. Anemia, status post transfusion [facility] 09/07/2017 2. Malnutrition, albumin 2.8 [facility] 09/07/2017 after hydration 3. Mention of history of resected "colon tumor" in the chart; surgery 1995; further details missing 4. Status post EGD 09/07/2017 at [facility]: Large clearly malignant ulcerated mass in the lesser curvature proximal stomach measures at least 5 cm. Biopsies obtained. Second large clearly malignant mass mid body of the stomach greater curvature measures at least 5 cm. Biopsies obtained. Otherwise normal EGD. 5. Status post colonoscopy 09/07/2017 at [facility]: Large approximately 3 cm pedunculated polyp in the ascending colon. Post right segmental colectomy with end-to-side ileocolonic anastomosis. Moderate-sized internal hemorrhoids. Otherwise normal colonoscopy . Status post polypectomy plus Endo Clip placement. Subjective: No major events or complaints; no major abd pain and under control with medications; no n/v/d; no sob or cp; + bowel activity; + activity Objective: Vitals: See below Exam: GENERAL: On exam, the patient was laying in bed and appeared to be comfortable and in no acute distress. ABDOMEN: Soft, nontender and nondistended. There are no peritoneal signs or guarding. SKIN: Skin appears to be pink and feels warm to touch. NEUROLOGIC: Patient is awake, alert, and follows commands appropriately. Exam/Review of Systems Vital Signs Vitals Vital Signs Date Time Temp Pulse Resp B/P Pulse Ox O2 Delivery O2 Flow Rate FiO2 09/10/17 07:29 99.0 82 20 118/76 100 09/07/17 18:44 Room Air 09/07/17 18:23 2.0 Intake and Output 09/09/17 09/09/17 09/10/17 15:00 23:00 07:00 Intake Total 705 ml 2030 ml 1305 ml Balance 705 ml 2030 ml 1305 ml Results Result Diagram: 09/09/17 0532 09/09/17 0532 VALERIO STEWART M.D. Sep 10, 2017 09:06
[2017-09-10 12:48] VITALS: BP 134/72; RESP 20
--- NOTE | 2017-09-10 14:06 | PN ---
Date/Time of Note Date/Time of Note DATE: 09/10/17 TIME: 14:01 Assessment/Plan VTE Prophylaxis VTE Prophylaxis Intervention: SCD's Lines/Catheters IV [facility]): Saline Lock Assessment/Plan Chief Complaint/Hosp Course Assessment: History of colon neoplasm post surgery Iron deficiency anemia- stable Abdominal pain EGD Large clearly malignant ulcerated mass in the lesser curvature proximal stomach measures at least 5 cm. Biopsies obtained Second large clearly malignant mass mid body of the stomach greater curvature measures at least 5 cm. Biopsies obtained Otherwise normal EGD Colonoscopy: Large approximately 3 cm pedunculated polyp in the ascending colon. Post right segmental colectomy with end-to-side ileocolonic anastomosis Moderate-sized internal hemorrhoids Otherwise normal colonoscopy Plan: Continue PPI therapy CT abdomen, pelvis and chest- reviewed and copy below Large circumferential infiltrative neoplasm involving the midbody of the stomach consistent with primary gastric cancer. Significant local regional lymphatic spread of neoplasm with abnormal pathologic perigastric and epigastric lymphadenopathy. Large and small nodules within the upper anterior omentum consistent with omental carcinomatosis. Postsurgical changes, status post previous right hemicolectomy, uncomplicated in appearance at this time. Pt to be follow by onc and sx She is seen in collaboration with Dr. Jones Subjective: Course reviewed with nursing staff Patient interviewed and examined All labs, imaging and other results reviewed The patient feels well, with a fair appetite no further complaints at this time Problems: Exam/Review of Systems Vital Signs Vitals Vital Signs Date Time Temp Pulse Resp B/P Pulse Ox O2 Delivery O2 Flow Rate FiO2 09/10/17 12:48 97.9 90 20 134/72 100 09/07/17 18:44 Room Air 09/07/17 18:23 2.0 Intake and Output 09/09/17 09/09/17 09/10/17 15:00 23:00 07:00 Intake Total 705 ml 2030 ml 1305 ml Balance 705 ml 2030 ml 1305 ml Exam Constitutional: alert, oriented Psych: no complaints Head: atraumatic, normocephalic Eyes: nl conjunctiva ENMT: nl external ears & nose Neck: supple Respiratory: clear to auscultation Cardiovascular: regular rate and rhythm Gastrointestinal: bowel sounds, No ascites, No distended, No firm, No tender Results Result Diagram: 09/09/1732 10/25/17 0532 Medications Medications Current Medications Ferric Sodium Gluconate Complex 125 mg/Sodium Chloride 110 ml @ 110 mls/hr Q24H IVPB Last administered on 09/09/17 15:11; Admin Dose 110 MLS/HR; Start 09/06/17 at 14:30; Stop 09/10/17 at 15:29 Potassium Chloride/Dextrose/ Sodium Chloride (KCl/D5-NS) 1,005 ml @ 100 mls/hr Q10H3M IV Last administered on 09/10/17 00:51; Admin Dose 100 MLS/HR; Start 09/06/17 at 19:30 Morphine Sulfate (morphine) 2 mg Q3H PRN IV SEVERE PAIN LEVEL 7-10 Last administered on 09/10/17 05:23; Admin Dose 2 MG; Start 09/07/17 at 17:30 Pantoprazole (Protonix Tab) 40 mg BID@06,18 PO Last administered on 09/10/17 05:59; Admin Dose 40 MG; Start 09/08/17 at 18:00 SARA PRINCE Sep 10, 2017 14:06
[2017-09-10] MEDS: SOD FERRIC GLUC COMPLX 125 MG in SOD CHLORIDE 0.9% 100 ML IVPB SCH (14:15)
--- NOTE | 2017-09-10 17:17 | PDOCDIS ---
Discharge Instructions CONDITION Patient Condition: Good HOME CARE INSTRUCTIONS: Diet Instructions: Regular ACTIVITY: Activity Restrictions: No Restrictions FOLLOW UP/APPOINTMENTS Follow-up Plan FOLLOW UP WITH YOUR PRIMARY CARE PHYSICIAN IN 1-2 WEEKS, F/U WITH DR STRATTON Thursday IN HER CLINIC LINDSEY AVALOS Sep 10, 2017 17:17
[2017-09-10] MEDS ORDERED: HYDR-906 PO (17:20)
--- NOTE | 2017-09-10 17:26 | DS ---
Date/Time of Note Date/Time of Note DATE: 09/10/17 TIME: 17:21 Discharge Summary Admission/Discharge Info Admit Date/Time Sep 06, 2017 at 10:46 Discharge Date/Time 09/10/2017 Discharge Diagnosis 1. Abdominal pain secondary to metastatic gastric adenocarcinoma EGD showed 2 gastric masses with pathology showing adenocarcinoma and CT abdomen showed gastric mass as well as metastasis with omental carcinomatosis Patient has been evaluated by oncology and plan is for patient to follow-up with oncology next week to initiate chemotherapy Surgery consultation appreciated DC with [facility] 2. History of colon cancer Patient Condition: Good Hospital Course Patient is a 57 yo male with a history of colon tumor, patient presents with abdominal pain and was found to have profound microcytic anemia and iron deficiency. Patient was seen by GI and EGD was done which showed 2 masses suspicious for carcinoma, pathology did show adenocarcinoma and CT abdomen did show metastasis with omental carcinomatosis. Patient was seen by surgery and oncology it was decided the patient does not any surgery or further staging with diagnostic laparoscopy and the patient should follow-up with oncology next week to initiate chemotherapy. On day of discharge patient's vitals, labs and physical exam are stable patient had no further acute complaints questions are answered. Home Meds Active Scripts Hydrocodone/Acetaminophen (Knippa 5-325 Tablet) 1 Each Tablet, 1 EACH PO Q4 for PAIN, #40 TAB Prov:LINDSEY AVALOS 09/10/17 Discontinued Scripts Hydrocodone/Acetaminophen (Knippa 5-325 Tablet) 1 Each Tablet, 1 TAB PO Q6H Y for PAIN, #15 TAB Prov:BA IVERSON PA-C 07/01/17 Naproxen* (Naprosyn*) 500 Mg Tablet, 500 MG PO BID Y for PAIN AND/OR INFLAMMATION, #30 TAB Prov:BA IVERSON PA-C 07/01/17 Follow-up Plan FOLLOW UP WITH YOUR PRIMARY CARE PHYSICIAN IN 1-2 WEEKS, F/U WITH DR STRATTON THIS THURSDAY IN HER CLINIC Primary Care Provider Alin Muñoz MD Time spent on discharge: > 30 minutes LINDSEY AVALOS Sep 10, 2017 17:26
--- NOTE | 2017-09-10 18:33 | CONS ---
Date/Time of Note Date/Time of Note DATE: 09/10/17 TIME: 11:33 vk le Assessment/Plan Assessment/Plan Chief Complaint/Hosp Course GASTRIC CANCER , ASSOCIATED WITH RADIOLOGICAL EVIDENCE OF PERITONEAL CARCINOMATOSIS POST EGD PATH Gastric mid-body mass, biopsies: Moderately to poorly-differentiated adenocarcinoma, CT abdomen, pelvis and chest- Large circumferential infiltrative neoplasm involving the midbody of the stomach consistent with primary gastric cancer. Significant local regional lymphatic spread of neoplasm with abnormal pathologic perigastric and epigastric lymphadenopathy. Large and small nodules within the upper anterior omentum consistent with omental carcinomatosis. Postsurgical changes, status post previous right hemicolectomy, uncomplicated in appearance at this time. CT CHEST - NEG PT IS A CANDIDATE FOR CHEMOTHERAPY for metastatic gastric cancer WILL D/W ALEA - i think we can omit diagnostic laparoscopy and biopsy with abdominal washings to delineate the extent and stage of this disease , its clear that pt has metastatic dis History of colon neoplasm post surgery, SANDRINE Iron deficiency anemia- stable MONITOR CLOSELY Abdominal pain Problems: Consultation Date/Type/Reason Admit Date/Time Sep 06, 2017 at 10:46 Initial Consult Date 09/08/17 Type of Consultation: [facility] Referring Provider: LINDSEY AVALOS Exam/Review of Systems Vital Signs Vitals Vital Signs Date Time Temp Pulse Resp B/P Pulse Ox O2 Delivery O2 Flow Rate FiO2 09/10/17 12:48 97.9 90 20 134/72 100 09/07/17 18:44 Room Air 09/07/17 18:23 2.0 Intake and Output 09/09/17 09/09/17 09/10/17 15:00 23:00 07:00 Intake Total 705 ml 2030 ml 1305 ml Balance 705 ml 2030 ml 1305 ml Results Result Diagram: 09/09/17 0532 09/09/17 0532 Medications Medications Current Medications Potassium Chloride/Dextrose/ Sodium Chloride (KCl/D5-NS) 1,005 ml @ 100 mls/hr Q10H3M IV Last administered on 09/10/17 14:16; Admin Dose 100 MLS/HR; Start 09/06/17 at 19:30 Morphine Sulfate (morphine) 2 mg Q3H PRN IV SEVERE PAIN LEVEL 7-10 Last administered on 09/10/17 05:23; Admin Dose 2 MG; Start 09/07/17 at 17:30 Pantoprazole (Protonix Tab) 40 mg BID@06,18 PO Last administered on 09/10/17t 05:59; Admin Dose 40 MG; Start 09/08/17 at 18:00 NICOHLAS STRATTON MD Sep 10, 2017 18:33
[2017-09-10] MEDS ORDERED: HYDROCODONE/APAP (5/325) TAB PO ONE (19:00)
== END 2017-09-10 19:00 | disposition home or self-care (01) | DRG 375 ==
LOC: E/R 06:49 → MS2 10:46
PROVIDERS: ADMIT Internal Medicine; ATTEND Internal Medicine
PROC: 0DBK8ZX Excision of Ascending Colon, Via Natural or Artificial Opening Endoscopic, Diagnostic (ICD-10-PCS; principal; 2017-09-07 20:00)
PROC: 0DB68ZX Excision of Stomach, Via Natural or Artificial Opening Endoscopic, Diagnostic (ICD-10-PCS; 2017-09-07 20:00)
PROC: 30233N1 Transfusion of Nonautologous Red Blood Cells into Peripheral Vein, Percutaneous Approach (ICD-10-PCS; 2017-09-07 20:00)
DX: C16.2 Malignant neoplasm of body of stomach (principal); C78.6 Secondary malignant neoplasm of retroperitoneum and peritoneum; C16.1 Malignant neoplasm of fundus of stomach; K25.9 Gastric ulcer, unspecified as acute or chronic, without hemorrhage or perforation; E87.6 Hypokalemia; D12.2 Benign neoplasm of ascending colon; D50.0 Iron deficiency anemia secondary to blood loss (chronic); K64.8 Other hemorrhoids; Z90.49 Acquired absence of other specified parts of digestive tract; Z85.038 Personal history of other malignant neoplasm of large intestine
CPT/HCPCS: 36415; 36430; 71010; 71260; 74177; 80048; 80053; 81003; 82270; 82728; 83540; 83605; 83690; 83735; 84100; 84443; 84484; 85014; 85018; 85025; 85610; 85730; 86850; 86900; 86901; 86920; 90686; 93005; 96365; 96366; 96375; C9113; J2270; J2405; J2916; J3480; J7030; J7042; P9016; Q9967

== ENCOUNTER 2018-07-26 10:36 | Inpatient (IN) | END 2018-08-13 17:39 | disposition home or self-care (01) | DRG 326 ==